=== PATIENT | male | born 1940 | race Caucasian/White ===

== ENCOUNTER 2024-04-23 18:55 | Inpatient (IN) | payer MEDICARE, SELFPAY ==
--- NOTE | ~2024-04-23 | XR_ITS ---
EXAMINATION: XR CHEST CLINICAL INFORMATION: Covert positive COMPARISON: 04/23/2024 TECHNIQUE: Portable upright 2:32 PM view of the chest was obtained. FINDINGS: On for technical limitations of a portable exam, no gross change. Blunting of bicuspid thickening is similar. Subtle increased markings in the right lung may be related to atypical infection. XR/XR chest 1V IMPRESSION: Limited portable exam. Subtle increased markings in the right lung may be related to atypical infection. Electronically signed by: Gustabo Joseph MD 04/27/2024 05:43 PM EDT
--- NOTE | ~2024-04-23 | CT_ITS ---
EXAMINATION: CT HEAD WITHOUT CONTRAST CT CERVICAL SPINE WITHOUT CONTRAST CLINICAL INFORMATION: Multiple falls. Patient on blood thinners. COMPARISON: None available. TECHNIQUE: Contiguous axial imaging was performed from the skull base to vertex without intravenous administration of contrast. Contiguous axial imaging was performed from the upper chest through the skull base without intravenous administration of contrast. Coronal and sagittal reformats were obtained at the acquisition workstation. This CT examination was performed using dose optimization techniques as appropriate, variously including the following: *Automated exposure control. *Adjustment of mA and/or kV according to patient size (this includes techniques or standardized protocols for targeted exams where dose is matched to indication/reason for exam; i.e. extremities or head). *Use of iterative reconstruction technique. DLP: 1327 mGy-cm FINDINGS: Head: There is no evidence of acute intracranial hemorrhage or edematous territorial infarction. Ybarra-white matter differentiation is preserved. Scattered and partially confluent hypoattenuation in the periventricular and deep white matter are consistent with moderate microangiopathy. Proportional prominence of the ventricles and sulcal spaces without evidence of obstructive hydrocephalus. No abnormal mass effect or midline shift. No extra-axial fluid collections. Calcific atherosclerotic disease of the intracranial internal carotid and vertebral arteries. No hyperdense vessel sign. No acute soft tissue or osseous abnormalities. There is a 3.3 cm soft tissue lesion in the superficial lobe of the right parotid gland. Mild mucosal thickening of the paranasal sinuses. The mastoid air cells and middle ear cavities are clear. Bilateral lens extractions. Cervical Spine: The atlantooccipital and atlantoaxial articulations remain well aligned. Moderate degenerative arthropathy at the atlantodental articulation. Straightening of the normal cervical lordosis. Otherwise, there is anatomic alignment of the vertebral bodies and posterior elements. No evidence of acute fracture or subluxation. The vertebral body heights are maintained. Advanced degenerative disc disease at C3-C4 and from C5-T1. Facet and uncovertebral joint arthropathy leads to osseous encroachment on the neural foramina from C3-C7. There is no prevertebral soft tissue swelling. There is a 0.8 cm coarse calcification in the right thyroid lobe (no follow-up imaging recommended based on current guidelines at the time of examination). The remaining cervical soft tissues are within normal limits. The lung apices demonstrate no abnormalities. CT/CT cervical spine wo IV con IMPRESSION: 1. No evidence of acute intracranial hemorrhage or edematous territorial infarction. Moderate underlying microangiopathy and generalized cerebral volume loss. 2. No evidence of acute fracture or traumatic subluxation of the cervical spine. Moderate multilevel degenerative spondyloarthropathy of the cervical spine. 3. There is a 3.3 cm soft tissue lesion in the superficial lobe of the right parotid gland. If not previously evaluated, this could be further characterized with dedicated ultrasound and/or tissue sampling. Electronically signed by: Leodan Lou DO 04/23/2024 10:26 PM EDT
--- NOTE | ~2024-04-23 | XR_ITS ---
EXAMINATION: XR CHEST CLINICAL INFORMATION: COVID positive, low suspicion CHF COMPARISON: None available. TECHNIQUE: Frontal view of the chest was obtained. FINDINGS: Low lung volumes accentuate the pulmonary vasculature. No focal airspace consolidation. Trace right pleural effusion at the costophrenic angle. No pneumothorax. Cardiac silhouette within normal limits. Bilateral shoulder osteoarthritis. XR/XR chest 1V IMPRESSION: No acute cardiopulmonary process. Trace right effusion. Electronically signed by: Waqas Jimenez DO 04/23/2024 10:54 PM EDT
--- NOTE | ~2024-04-23 | XR_ITS ---
EXAMINATION: XR HIP, RIGHT CLINICAL INFORMATION: Fall, pain COMPARISON: None available. TECHNIQUE: Two views of the right hip. FINDINGS: No fracture. Alignment is anatomic. Hip joint space is maintained. Osteoarthritis present. Soft tissues are unremarkable. XR/XR hip RT w PEL1V IMPRESSION: No acute fracture or dislocation the right hip. Electronically signed by: Waqas Jimenez DO 04/23/2024 11:02 PM EDT
[2024-04-23 19:03] VITALS: BP 172/96; PULSE 106; O2SAT 98
[2024-04-23 19:12] VITALS: BP 181/95; PULSE 100; RESP 16; TEMP 36.4; O2SAT 97; BMI 33.8
--- NOTE | 2024-04-23 19:47 | ECG_ITS ---
Test Reason : FALL Blood Pressure : / mmHG Vent. Rate : 102 BPM Atrial Rate : 000 BPM P-R Int : 000 ms QRS Dur : 134 ms QT Int : 396 ms P-R-T Axes : 000 -61 005 degrees QTc Int : 516 ms Atrial fibrillation with rapid ventricular response Right bundle branch block Left anterior fascicular block Bifascicular block Septal infarct , age undetermined Abnormal ECG When compared with ECG of 18-APR-2009 07:07, Atrial fibrillation has replaced Sinus rhythm Vent. rate has increased BY 44 BPM (RBBB and left anterior fascicular block) is now Present Septal infarct is now Present Referred By: Phyllis Holguin Electronically Signed By:SHAI FLORES
[2024-04-23 20:12] LABS: MANUAL DIFF FLAG NO
[2024-04-23 20:21] LABS: Basophils Percent Auto 0.4 % (0-2); Eosinophils Absolute Auto 0.2 X10*3/uL (0.0-0.4); Eosinophils Percent Auto 2.2 % (0-4); Hematocrit 29.8 % (42.0-52.0); Hemoglobin 9.3 g/dl (14.0-18.0); Imm Gran Abs Auto 0.05 X10*3/uL (0.00-0.03); Imm Gran Pct Auto 0.6 % (0.0-0.4); Lymphocytes Absolute Auto 1.3 X10*3/uL (1.2-4.9); Lymphocytes Percent Auto 16.2 % (20-40); Mean Corpuscular HGB Conc 31.2 g/dl (31.0-36.0); Mean Corpuscular Hemoglobin 28.4 pg (27.0-33.0); Mean Corpuscular Volume 90.9 fL (80.0-98.0); Mean Platelet Volume 11.4 fL (9.4-12.4); Monocytes Absolute Auto 0.7 X10*3/uL (0.1-1.2); Monocytes Percent Auto 8.7 % (2-11); Neutrophils Absolute Auto 5.6 x10*3/uL (2.0-8.3); Neutrophils Percent Auto 71.9 % (45-73); Platelet Count 174 X10*3/uL (160-400); Red Blood Count 3.28 X10*6/uL (4.60-5.80); White Blood Count 7.8 X10*3/uL (4.8-10.8)
[2024-04-23 20:27] VITALS: BP 151/64; PULSE 96; RESP 20; TEMP 36.9; O2SAT 97
[2024-04-23 20:28] LABS: COVID-19 Test Positive (Negative); IDNOW Serial# 6674DD1D
--- NOTE | 2024-04-23 20:28 | MHC.EDTECH ---
Patient was biba from home ,vitals taken ,blood drawn and covid swab collected all sent to lab ,ekg taken and was read by Provider ,Patient was change into hospital gown ,all extra blankets removed from underneath Patient ,All safety measure in Place .
[2024-04-23 20:33] LABS: B Type Natriuretic Peptide 293 pg/mL (<100)
[2024-04-23 20:35] LABS: INTERNATIONAL NORM RATIO 1.2 (0.9-1.1); Prothrombin Time 14.2 SEC (11.1-13.3)
[2024-04-23 20:38] LABS: Alanine Aminotransferase 9 U/L (0-40); Albumin Level 3.5 g/dL (3.5-5.0); Alkaline Phosphatase 71 U/L (39-117); Anion Gap 14 (12-20); Aspartate Amino Transferase 11 U/L (5-37); Bilirubin Direct 0.3 mg/dL (0.0-0.5); Bilirubin Total 0.7 mg/dL (0.0-1.0); Blood Urea Nitrogen 15 mg/dL (9-16); Calcium 9.1 mg/dL (8.4-10.2); Carbon Dioxide 23 mmol/L (22-29); Chloride 110 mmol/L (96-108); Creatinine Clr Calc Pharmacy 70.3; Estimated Glomerular Filt Rate > 60; Ethanol < 10 mg/dL; Glucose Random 110 mg/dL (60-115); Magnesium 1.6 mg/dL (1.6-2.6); Potassium 3.6 mmol/L (3.3-5.1); Sodium 143 mmol/L (135-145); Total Protein 6.7 g/dL (6.5-8.0); Troponin-I High Sensitivity 45.3 ng/L (<3.5-35.0)
[2024-04-23 20:50] LABS: TSH reflex Free T4 1.26 uIU/mL (0.32-4.0)
--- NOTE | 2024-04-23 21:03 | ED.FALL ---
HPI - Fall General Chief Complaint: Fall Stated Complaint: Fall, increased weakness, hx neuropathy, leg edema Time Seen by Provider: 04/23/24 19:07 Source: patient Mode of arrival: ambulatory Limitations: no limitations History of Present Illness ED Provider: Dr. Phyllis Holguin HPI Narrative: Patient comes to the emergency room complaining of 2 falls. Patient states that earlier today, he fell transferring from chair to chair, slipped out and ended up on the floor. Patient states that this happened twice a day. 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 Patient states that he is on Eliquis, states that he did not hit his head or lost consciousness. Patient complaining of mild right hip pain. Related Data Allergies Allergy/AdvReac Type Severity Reaction Status Date / Time Penicillins Allergy Hives Verified 04/23/24 19:14 Review of Systems Review of Systems: Constitutional : No Weight loss, No Fever, No Chills, No Night Sweats, complaining of feeling fatigued and weak ENT/Mouth : No Hearing loss, No Ear Pain, No Nasal Congestion, No Sinus Pain, No Hoarseness, No sore throat, No Rhinorrhea, No Swallowing Difficulty Eyes: No Eye Pain, No Swelling, No Redness, No Foreign Body, No Discharge, No Vision Changes Cardiovascular : No Chest Pain, No SOB, No Dyspnea on Exertion, No Orthopnea, No Edema, No Palpitations Respiratory : No Cough, No Sputum, No Wheezing, No Smoke Exposure, No Dyspnea Gastrointestinal : No Nausea, No Vomiting, No Diarrhea, No Constipation, No abdominal Pain, No Hematochezia, No Melena Genitourinary : no irregular bleeding, No Dysuria, No Urinary Frequency, No Hematuria, No Urinary Incontinence, No Urgency, No Flank Pain, No Urinary Flow Changes, No Hesitancy Musculoskeletal : Complaining of right hip pain, No Myalgias, No Joint Swelling Skin : No Skin Lesions, No rash Neuro : No Weakness, No Numbness, No Paresthesias, No Loss of Consciousness, No Dizziness, No Headache Psych : No Anxiety/Panic, No Depression, No SI/HI/AH/VH, No Social Issues, Heme/Lymph: No Bruising, No Bleeding,No Lymphadenopathy Endocrine : No Polyuria, No Polydipsia, No Temperature Intolerance [facility] Past Medical History Medical History (Updated 04/23/24 @ 23:08 by Phyllis Holguin MD) Hypertension Hyperlipidemia Obstructive sleep apnea Spinal stenosis Anemia Chronic GERD Chronic kidney disease, stage 3 CHF (congestive heart failure) 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 Oriented X3. No acute distress. Eyes: Pupils equal, round and reactive to light. ENT: Pharynx normal. Neck: Normal inspection. Neck supple. No lymph nodes noted. No crepitus CVS: Normal heart rate and rhythm. Pulses normal. Normal S1 and S2 Respiratory: No respiratory distress. Breath sounds normal. No Wheezing. No rales Abdomen: Soft and nontender. No rigidity. No distention. Skin: Skin warm and dry. Normal skin color. Normal skin turgor. Extremities: +3 pitting edema bilaterally, No Lacerations. No Rash Neuro: Oriented X 3. No motor deficit. No sensory deficit. Moving all extremities. No slurred speech. CN 2 through 12 grossly intact Psych: calm, cooperative, normal affect Course Course Course Narrative: My interpretation of labs: No significant abnormality in hematology and chemistry, normal LFTs, TSH, troponin slightly elevated 45, BNP 293. Serology test positive for COVID -urinalysis pending Medications Administered Discontinued Medications Generic Name Dose Route Start Last Admin Trade Name Freq PRN Reason Stop Dose Admin Ceftriaxone Sodium 1 gm/ 50 mls @ 100 mls/hr 04/23/24 21:57 04/23/24 22:15 Sodium Chloride IV 04/23/24 22:26 100 mls/hr ONCE ONE Administration Medical Decision Making Medical Decision Making [facility] Narrative: My interpretation of labs: Patient's hemoglobin 9.3, no previous labs for comparison. Normal electrolytes. Troponin slightly elevated 45.3, BNP 293. Serology positive for COVID, urine positive for UTI -patient's vitals are stable, no episodes of hypotension, no fever or tachycardia -patient receiving ceftriaxone IV -sepsis is not suspected -my interpretation of chest x-ray: No signs of pneumonia. -my interpretation of hip x-ray: No fracture -patient does not additional oxygen, no need for IV antibiotics. Discussed the patient with Dr. Landaverde, patient does not have criteria for admission. Patient will need physical therapy and case management. -physician observation started at 23:00 Differential Diagnosis Differential Diagnoses: The differential diagnosis associated with the presentation includes (UTI, pneumonia, COVID, deconditioning) Admission/Observation Consideration of admission/observation: Escalation of care including admission/observation considered Consult Healthcare Provider Management of the patient was discussed with: Hospitalist Lab Data MDM Lab Attestation statement: I reviewed the patient's lab results. 04/23/24 20:07 04/23/24 20:07 Labs: Lab Results 04/23/24 04/23/24 04/23/24 Range/Units 20:07 20:09 21:02 WBC 7.8 (4.8-10.8) X10*3/uL RBC 3.28 L (4.60-5.80) X10*6/uL Hgb 9.3 L (14.0-18.0) g/dl Hct 29.8 L (42.0-52.0) % MCV 90.9 (80.0-98.0) fL MCH 28.4 (27.0-33.0) pg MCHC 31.2 (31.0-36.0) g/dl RDW 16.0 (11.0-16.0) % Plt Count 174 (160-400) X10*3/uL MPV 11.4 (9.4-12.4) fL Immature Gran % (Auto) 0.6 H (0.0-0.4) % Neut % (Auto) 71.9 (45-73) % Lymph % (Auto) 16.2 L (20-40) % Harding % (Auto) 8.7 (2-11) % Eos % (Auto) 2.2 (0-4) % Baso % (Auto) 0.4 (0-2) % Lymph # (Auto) 1.3 (1.2-4.9) X10*3/uL Harding # (Auto) 0.7 (0.1-1.2) X10*3/uL Eos # (Auto) 0.2 (0.0-0.4) X10*3/uL Baso # (Auto) 0.0 (0.0-0.2) X10*3/uL Abs Immat Gran (auto) 0.05 H (0.00-0.03) X10*3/uL Absolute Neuts (auto) 5.6 (2.0-8.3) x10*3/uL Absolute Nucleated RBC 0.000 (0.0-0.012) X10*3/uL Nucleated RBC % (auto) 0.0 (0.0-0.2) /100WBC PT 14.2 H (11.1-13.3) SEC INR 1.2 H (0.9-1.1) Sodium 143 (135-145) mmol/L Potassium 3.6 (3.3-5.1) mmol/L Chloride 110 H (96-108) mmol/L Carbon Dioxide 23 (22-29) mmol/L Anion Gap 14 (12-20) BUN 15 (9-16) mg/dL Creatinine 1.07 (0.5-1.4) mg/dL Estim Creat Clear Calc 70.3 Estimated GFR > 60 Random Glucose 110 (60-115) mg/dL Calcium 9.1 (8.4-10.2) mg/dL Magnesium 1.6 (1.6-2.6) mg/dL Total Bilirubin 0.7 (0.0-1.0) mg/dL Direct Bilirubin 0.3 (0.0-0.5) mg/dL AST 11 (5-37) U/L ALT 9 (0-40) U/L Alkaline Phosphatase 71 (39-117) U/L Troponin I High Sens 45.3 H (<3.5-35.0) ng/L B-Natriuretic Peptide 293 H (<100) pg/mL Total Protein 6.7 (6.5-8.0) g/dL Albumin 3.5 (3.5-5.0) g/dL TSH 1.26 (0.32-4.0) uIU/mL Urine Color Yellow Urine Appearance Turbid Urine pH 5.5 (5.0-9.0) Ur Specific [place] 1.020 (1.005-1.025) Urine Protein 100 (2+) H (Neg-Trace) mg/dL Urine Glucose (UA) Negative (Negative) mg/dL Urine Ketones Negative (Negative) mg/dL Urine Blood Small (1+) H (Negative) Urine Nitrite Negative (Negative) Ur Leukocyte Esterase Large (3+) H (Negative) Urine RBC 0-2 (0-2) /HPF Urine WBC >50 H (0-5) /HPF Ur Squamous Epith Cells 0-2 (0-2) /HPF Urine Bacteria None Seen (None Seen) Hyaline Casts 0-2 (0-2) /LPF Urine Opiates Screen Not Detected (Not Detect) Ur Buprenorphine Scrn Not Detected (Not Detect) ng/mL Ur Oxycodone Screen Not Detected (Not Detect) ng/mL Urine Methadone Screen Not Detected (Not Detect) ng/mL Urine Fentanyl Screen Not Detected (Not Detect) Ur Barbiturates Screen Not Detected (Not Detect) Ur Phencyclidine Scrn Not Detected (Not Detect) Ur Amphetamines Screen Not Detected (Not Detect) U Benzodiazepines Scrn Not Detected (Not Detect) Urine Cocaine Screen Not Detected (Not Detect) U Marijuana (THC) Screen Not Detected (Not Detect) Ethyl Alcohol < 10 mg/dL COVID-19 ([facility]) Positive A (Negative) COVID-19 Clin Com See Note 04/23/24 Range/Units 22:17 WBC (4.8-10.8) X10*3/uL RBC (4.60-5.80) X10*6/uL Hgb (14.0-18.0) g/dl Hct (42.0-52.0) % MCV (80.0-98.0) fL MCH (27.0-33.0) pg MCHC (31.0-36.0) g/dl RDW (11.0-16.0) % Plt Count (160-400) X10*3/uL MPV (9.4-12.4) fL Immature Gran % (Auto) (0.0-0.4) % Neut % (Auto) (45-73) % Lymph % (Auto) (20-40) % Harding % (Auto) (2-11) % Eos % (Auto) (0-4) % Baso % (Auto) (0-2) % Lymph # (Auto) (1.2-4.9) X10*3/uL Harding # (Auto) (0.1-1.2) X10*3/uL Eos # (Auto) (0.0-0.4) X10*3/uL Baso # (Auto) (0.0-0.2) X10*3/uL Abs Immat Gran (auto) (0.00-0.03) X10*3/uL Absolute Neuts (auto) (2.0-8.3) x10*3/uL Absolute Nucleated RBC (0.0-0.012) X10*3/uL Nucleated RBC % (auto) (0.0-0.2) /100WBC PT (11.1-13.3) SEC INR (0.9-1.1) Sodium (135-145) mmol/L Potassium (3.3-5.1) mmol/L Chloride (96-108) mmol/L Carbon Dioxide (22-29) mmol/L Anion Gap (12-20) BUN (9-16) mg/dL Creatinine (0.5-1.4) mg/dL Estim Creat Clear Calc Estimated GFR Random Glucose (60-115) mg/dL Calcium (8.4-10.2) mg/dL Magnesium (1.6-2.6) mg/dL Total Bilirubin (0.0-1.0) mg/dL Direct Bilirubin (0.0-0.5) mg/dL AST (5-37) U/L ALT (0-40) U/L Alkaline Phosphatase (39-117) U/L Troponin I High Sens 48.5 H (<3.5-35.0) ng/L B-Natriuretic Peptide (<100) pg/mL Total Protein (6.5-8.0) g/dL Albumin (3.5-5.0) g/dL TSH (0.32-4.0) uIU/mL Urine Color Urine Appearance Urine pH (5.0-9.0) Ur Specific [place] (1.005-1.025) Urine Protein (Neg-Trace) mg/dL Urine Glucose (UA) (Negative) mg/dL Urine Ketones (Negative) mg/dL Urine Blood (Negative) Urine Nitrite (Negative) Ur Leukocyte Esterase (Negative) Urine RBC (0-2) /HPF Urine WBC (0-5) /HPF Ur Squamous Epith Cells (0-2) /HPF Urine Bacteria (None Seen) Hyaline Casts (0-2) /LPF Urine Opiates Screen (Not Detect) Ur Buprenorphine Scrn (Not Detect) ng/mL Ur Oxycodone Screen (Not Detect) ng/mL Urine Methadone Screen (Not Detect) ng/mL Urine Fentanyl Screen (Not Detect) Ur Barbiturates Screen (Not Detect) Ur Phencyclidine Scrn (Not Detect) Ur Amphetamines Screen (Not Detect) U Benzodiazepines Scrn (Not Detect) Urine Cocaine Screen (Not Detect) U Marijuana (THC) Screen (Not Detect) Ethyl Alcohol mg/dL COVID-19 ([facility]) (Negative) COVID-19 Clin Com Independent Interpretation I performed an independent interpretation of an: Plain X-Ray and CT Scan Radiology Impression Discussion of test interpretation with radiology: I have reviewed the radiologist's reading. Radiologist Impression: Head: There is no evidence of acute intracranial hemorrhage or edematous territorial infarction. Ybarra-white matter differentiation is preserved. Scattered and partially confluent hypoattenuation in the periventricular and deep white matter are consistent with moderate microangiopathy. Proportional prominence of the ventricles and sulcal spaces without evidence of obstructive hydrocephalus. No abnormal mass effect or midline shift. No extra-axial fluid collections. Calcific atherosclerotic disease of the intracranial internal carotid and vertebral arteries. No hyperdense vessel sign. No acute soft tissue or osseous abnormalities. There is a 3.3 cm soft tissue lesion in the superficial lobe of the right parotid gland. Mild mucosal thickening of the paranasal sinuses. The mastoid air cells and middle ear cavities are clear. Bilateral lens extractions. Cervical Spine: The atlantooccipital and atlantoaxial articulations remain well aligned. Moderate degenerative arthropathy at the atlantodental articulation. Straightening of the normal cervical lordosis. Otherwise, there is anatomic alignment of the vertebral bodies and posterior elements. No evidence of acute fracture or subluxation. The vertebral body heights are maintained. Advanced degenerative disc disease at C3-C4 and from C5-T1. Facet and uncovertebral joint arthropathy leads to osseous encroachment on the neural foramina from C3-C7. There is no prevertebral soft tissue swelling. There is a 0.8 cm coarse calcification in the right thyroid lobe (no follow-up imaging recommended based on current guidelines at the time of examination). The remaining cervical soft tissues are within normal limits. The lung apices demonstrate no abnormalities. CT/CT head/brain wo IV con IMPRESSION: 1. No evidence of acute intracranial hemorrhage or edematous territorial infarction. Moderate underlying microangiopathy and generalized cerebral volume loss. 2. No evidence of acute fracture or traumatic subluxation of the cervical spine. Moderate multilevel degenerative spondyloarthropathy of the cervical spine. 3. There is a 3.3 cm soft tissue lesion in the superficial lobe of the right parotid gland. If not previously evaluated, this could be further characterized with dedicated ultrasound and/or tissue sampling. Low lung volumes accentuate the pulmonary vasculature. No focal airspace consolidation. Trace right pleural effusion at the costophrenic angle. No pneumothorax. Cardiac silhouette within normal limits. Bilateral shoulder osteoarthritis. XR/XR chest 1V IMPRESSION: No acute cardiopulmonary process. Trace right effusion. No fracture. Alignment is anatomic. Hip joint space is maintained. Osteoarthritis present. Soft tissues are unremarkable. XR/XR hip RT w PEL1V IMPRESSION: No acute fracture or dislocation the right hip. Critical Care Time Critical Care Time Critical Care Time: Yes Total Critical Care Time: 60 Attestation: I have personally provided critical care time. Time includes review of lab data, radiology results, discussion with consultants, and monitoring for potential decompensation. Intervention performed as documented. Discharge Plan Discharge Clinical Impression: COVID-19, Weakness, Acute UTI Patient Disposition: Still a Patient Print Language: Bahamian
--- NOTE | 2024-04-23 21:07 | PC.NURSE ---
Per patient he's currently living in a hotel because his landlord threw him out to redo the place
[2024-04-23 21:09] LABS: Appearance Urine Turbid; Color Urine Yellow; Glucose Urine UA Negative (Negative); Leukocyte Esterase Urine Large (3+) (Negative); Nitrite Urine Negative (Negative); PH 5.5 (5.0-9.0); UMIC TRIGGER UACC YES; Urine Blood Small (1+) (Negative); Urine Ketones Negative (Negative); Urine Protein 100 (2+) mg/dL (Neg-Trace)
[2024-04-23 21:26] LABS: Bacteria Urine None Seen (None Seen); Hyaline Casts Urine 0-2 /LPF (0-2); RBC Urine 0-2 /HPF (0-2); Squamous Epithelial Cell Urine 0-2 /HPF (0-2); UACC Culture Trigger YES; WBC Urine >50 /HPF (0-5)
[2024-04-23 21:28] LABS: Amphetamine Screen Urine Not Detected (Not Detect); Barbiturates, Urine Not Detected (Not Detect); Benzodiazepines Screen Urine Not Detected (Not Detect); Buprenorphine Scr Not Detected (Not Detect); Cannabinoid Screen Urine Not Detected (Not Detect); Cocaine Screen Urine Not Detected (Not Detect); Fentanyl, urine Not Detected (Not Detect); Methadone Screen, Urine Not Detected (Not Detect); Opiate Screen Urine Not Detected (Not Detect); Oxycodone Screen Urine Not Detected (Not Detect); Phencyclidine Screen Urine Not Detected (Not Detect)
[2024-04-23 22:00] VITALS: BP 181/88; PULSE 98; RESP 12; TEMP 36.6; O2SAT 97
[2024-04-23] MEDS: cefTRIAXone sodium 1 GM in 0.9 % Sodium Chloride 50 ML IV (22:15)
[2024-04-23 22:44] LABS: Troponin-I High Sensitivity 48.5 ng/L (<3.5-35.0)
[2024-04-24] VITALS (13 sets, daily range): BP systolic 145–186; BP diastolic 72–117; PULSE 81–140; RESP 12–22; TEMP 36.7–37.3; O2SAT 76–100
--- NOTE | 2024-04-24 00:16 | PC.NURSE ---
this rn assumed care of pt, pt a&ox4, respirations even and unlabored. pt assisted in bed change, pt 2A for assistance with rolling. pt noted to have redness and edema to the bilateral lower extremities.
--- NOTE | 2024-04-24 01:49 | MHC.EDTECH ---
Patient awake in bed ,Patient belongings list done ,all safety measure in Place .
--- NOTE | 2024-04-24 04:30 | MHC.EDTECH ---
0400 rounding done ,Patient was incontinent of urine ,care given and gown change ,Patient was moved into a hospital bed ,apple juice given ,bed alarm non bed .
--- NOTE | 2024-04-24 04:32 | PC.NURSE ---
pt assisted onto hospital bed, tele leads placed on pt, pt noted to be in afib rhythm 125-140bpm. dr.anwer crisostomo.
[2024-04-24] MEDS: dilTIAZem HCL 50 MG/10 ML VIAL 20 MG IVPUSH (04:45)
--- NOTE | 2024-04-24 04:52 | PC.NURSE ---
pt medicated per mar, pt heart rate 80-84bpm, at bedside. pt reports he is unsure if he takes medications for afib.
[2024-04-24] MEDS: Apixaban 5 MG TABLET PO ×2 (05:02→21:21)
--- NOTE | 2024-04-24 05:13 | P.HPHOSP_ITS ---
History of Present Illness Date of Service: 04/24/24 Chief Complaint: Fall This is a 83-year-old male with pertinent history of paroxysmal atrial fibrillation not on anticoagulation, gastroesophageal reflux disease, mixed hyperlipidemia, non-insulin dependent diabetes mellitus, peripheral neuropathy, hypertension, history of spinal stenosis, GHISLAINE not on CPAP who presents to the emergency department for evaluation after a fall. Patient states while transferring from 1 chair to the other, he slipped and fell. Did not lose consciousness prior to the fall. No chest pain or palpitations prior to the fall. No rhythmic jerking movement of extremities. Patient states he has been having neuropathic pain and he needs help at home. His primary upper stitcher is is 85-year-old . States he does not know any of his medications in his keeps him all his prescription medications. Patient was previously on Eliquis for AFib but is not on it for unknown reasons. Complaining of right hip pain since the fall. No fever, chills, chest discomfort, palpitations, abdominal pain, changes in bowel habits. Does endorse foul-smelling urine and increased urinary frequency. In the emergency department, patient's heart rate was in the 140s and he was given IV diltiazem. Also tested positive for COVID-19 and urine concerning for UTI. 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 Atrial fibrillation Type 2 diabetes mellitus Neuropathy Pertinent family history: Not significant due to age Social History Smoked in Last 30 Days: Yes Use of substances other than those prescribed or required for medical reasons: No Advance Directives: No Advance Directives Information Provided: Yes Do you have a plan to hurt others: No Plan Meds Allergies Allergy/AdvReac Type Severity Reaction Status Date / Time Penicillins Allergy Hives Verified 04/23/24 19:14 Active Medications: Current Medications Cefuroxime Axetil (Cefuroxime Axetil 250 Mg Tablet) 250 mg PO ONCE ONE Stop: 04/24/24 09:01 Physical Exam 2 Vital Signs and Narrative: Vital Signs: Last Vital Signs Temp 98.2 F 04/24/24 04:35 Pulse 97 04/24/24 04:50 Resp 20 04/24/24 04:50 BP 179/86 H 04/24/24 04:50 Pulse Ox 93 04/24/24 04:50 O2 Del Method Room Air 04/24/24 04:50 BMI result Body Mass Index 33.8 Elderly male lying in bed in no distress Neck supple, no JVD Regular rate and rhythm, S1-S2 heard Regular breath sounds bilaterally, no wheezing or crackles appreciated Abdomen soft nontender, no guarding, no rigidity Patient is awake, alert and oriented to self, place, time and person ; no focal motor deficit Psych: Normal mood Bilateral pedal edema Results Labs 04/23/24 20:07 04/23/24 20:07 Labs: Laboratory Results - last 24 hr 04/23/24 04/23/24 04/23/24 20:07 20:09 21:02 MCV 90.9 MCH 28.4 MCHC 31.2 RDW 16.0 Plt Count 174 MPV 11.4 Immature Gran % (Auto) 0.6 H Neut % (Auto) 71.9 Lymph % (Auto) 16.2 L Whitley % (Auto) 8.7 Eos % (Auto) 2.2 Baso % (Auto) 0.4 Lymph # (Auto) 1.3 Whitley # (Auto) 0.7 Eos # (Auto) 0.2 Baso # (Auto) 0.0 Abs Immat Gran (auto) 0.05 H Absolute Neuts (auto) 5.6 Absolute Nucleated RBC 0.000 Nucleated RBC % (auto) 0.0 PT 14.2 H INR 1.2 H Anion Gap 14 Estim Creat Clear Calc 70.3 Estimated GFR > 60 Random Glucose 110 Calcium 9.1 Magnesium 1.6 Total Bilirubin 0.7 Direct Bilirubin 0.3 AST 11 ALT 9 Alkaline Phosphatase 71 Troponin I High Sens 45.3 H B-Natriuretic Peptide 293 H Total Protein 6.7 Albumin 3.5 TSH 1.26 Urine Color Yellow Urine Appearance Turbid Urine pH 5.5 Ur Specific [place] 1.020 Urine Protein 100 (2+) H Urine Glucose (UA) Negative Urine Ketones Negative Urine Blood Small (1+) H Urine Nitrite Negative Ur Leukocyte Esterase Large (3+) H Urine RBC 0-2 Urine WBC >50 H Ur Squamous Epith Cells 0-2 Urine Bacteria None Seen Hyaline Casts 0-2 Urine Opiates Screen Not Detected Ur Buprenorphine Scrn Not Detected Ur Oxycodone Screen Not Detected Urine Methadone Screen Not Detected Urine Fentanyl Screen Not Detected Ur Barbiturates Screen Not Detected Ur Phencyclidine Scrn Not Detected Ur Amphetamines Screen Not Detected U Benzodiazepines Scrn Not Detected Urine Cocaine Screen Not Detected U Marijuana (THC) Screen Not Detected Ethyl Alcohol < 10 COVID-19 ([facility]) Positive A COVID-19 Clin Com See Note 04/23/24 22:17 MCV MCH MCHC RDW Plt Count MPV Immature Gran % (Auto) Neut % (Auto) Lymph % (Auto) Whitley % (Auto) Eos % (Auto) Baso % (Auto) Lymph # (Auto) Whitley # (Auto) Eos # (Auto) Baso # (Auto) Abs Immat Gran (auto) Absolute Neuts (auto) Absolute Nucleated RBC Nucleated RBC % (auto) PT INR Anion Gap Estim Creat Clear Calc Estimated GFR Random Glucose Calcium Magnesium Total Bilirubin Direct Bilirubin AST ALT Alkaline Phosphatase Troponin I High Sens 48.5 H B-Natriuretic Peptide Total Protein Albumin TSH Urine Color Urine Appearance Urine pH Ur Specific [place] Urine Protein Urine Glucose (UA) Urine Ketones Urine Blood Urine Nitrite Ur Leukocyte Esterase Urine RBC Urine WBC Ur Squamous Epith Cells Urine Bacteria Hyaline Casts Urine Opiates Screen Ur Buprenorphine Scrn Ur Oxycodone Screen Urine Methadone Screen Urine Fentanyl Screen Ur Barbiturates Screen Ur Phencyclidine Scrn Ur Amphetamines Screen U Benzodiazepines Scrn Urine Cocaine Screen U Marijuana (THC) Screen Ethyl Alcohol COVID-19 ([facility]) COVID-19 Clin Com Imaging Radiologist's Impressions: Impressions Cervical Spine CT 04/23/24 20:57 IMPRESSION: 1. No evidence of acute intracranial hemorrhage or edematous territorial infarction. Moderate underlying microangiopathy and generalized cerebral volume loss. 2. No evidence of acute fracture or traumatic subluxation of the cervical spine. Moderate multilevel degenerative spondyloarthropathy of the cervical spine. 3. There is a 3.3 cm soft tissue lesion in the superficial lobe of the right parotid gland. If not previously evaluated, this could be further characterized with dedicated ultrasound and/or tissue sampling. Electronically signed by: Leodan Lou DO 04/23/2024 10:26 PM EDT RP Chest X-Ray 04/23/24 21:03 IMPRESSION: No acute cardiopulmonary process. Trace right effusion. Electronically signed by: Waqas Jimenez DO 04/23/2024 10:54 PM EDT RP Head CT 04/23/24 21:05 IMPRESSION: 1. No evidence of acute intracranial hemorrhage or edematous territorial infarction. Moderate underlying microangiopathy and generalized cerebral volume loss. 2. No evidence of acute fracture or traumatic subluxation of the cervical spine. Moderate multilevel degenerative spondyloarthropathy of the cervical spine. 3. There is a 3.3 cm soft tissue lesion in the superficial lobe of the right parotid gland. If not previously evaluated, this could be further characterized with dedicated ultrasound and/or tissue sampling. Electronically signed by: Leodan Lou DO 04/23/2024 10:26 PM EDT RP Hip/Pelvis X-Ray 04/23/24 21:07 IMPRESSION: No acute fracture or dislocation the right hip. Electronically signed by: Waqas Jimenez DO 04/23/2024 11:02 PM EDT RP Assessment and Plan (1) Atrial fibrillation with rapid ventricular response: Status: Acute Plan This is a 83-year-old male with pertinent history of paroxysmal atrial fibrillation not on anticoagulation, gastroesophageal reflux disease, mixed hyperlipidemia, non-insulin dependent diabetes mellitus, peripheral neuropathy, hypertension, history of spinal stenosis, GHISLAINE not on CPAP who presents to the emergency department for evaluation after a fall. #. Generalized weakness in the setting of COVID-19 infection on acute UTI: Will admit patient with IV Rocephin. Follow urine culture. No sepsis. Consulting Physical therapy to evaluate and treat #. AFib with RVR: Rate controlled with IV diltiazem push in the ER. Continue to monitor. On beta-johan. Chads Vasc score 3. Initiated Eliquis #. Normocytic anemia: Hemoglobin above transfusion threshold #. Mood disorder: Continue home mood stabilizers #. Hypertension: Continue home antihypertensives #. Gastroesophageal reflux disease: On PPI #. Mixed hyperlipidemia: On statin #. Dgg-czxyxgs-xdiceqhby diabetes mellitus with neuropathy: Initiating Accu- Cheks with sliding scale insulin. Also initiating gabapentin #. Bilateral lower extremity edema: Leg elevation and compression stockings. May need diuresis Med rec pending DVT prophylaxis: Eliquis Full code Quality Stroke Does the patient have a stroke diagnosis?: No VTE Prior VTE?: No VTE Risk Level:: Medical - moderate - high VTE Device Contraindication: Treatment Not Indicated VTE Drug Contraindication: N/A - Med Ordered
--- NOTE | 2024-04-24 05:25 | PC.NURSE ---
Radha pt - [phone] [facility] [address]
[2024-04-24] MEDS: Gabapentin 300 MG CAPSULE PO ×2 (05:44→21:21)
--- NOTE | 2024-04-24 06:42 | PC.NURSE ---
aware of pt blood pressure, orders as follows.
[2024-04-24] MEDS: Labetalol HCL 100 MG/20 ML VIAL 10 MG IVPUSH (07:00)
--- NOTE | 2024-04-24 07:28 | PC.NURSE ---
pt's oxygen saturation noted to decrease to 76% on RA w/ a good pleth while sleeping. pt woken up - O2 increased to 84% on RA. pt denies any difficulty breathing/sob. no no sob/wob noted. respirations even/unlabored. lung sounds CTA. pt placed on 2L via NC for supplemental oxygen. resting in hospital bed in no apparent distress. pt waiting for bed assignment. plan of care ongoing. call pretty placed within reach.
[2024-04-24] MEDS: 0.9 % Sodium Chloride Flush 3 ML SYRINGE IVFLUSH (07:31)
[2024-04-24] MEDS: cefTRIAXone sodium 1 GM in 0.9 % Sodium Chloride 50 ML IV (08:05)
[2024-04-24] MEDS: cefuroxime axetiL 250 MG TABLET PO (08:05)
--- NOTE | 2024-04-24 08:08 | PC.NURSE ---
abx administered per provider order.
--- NOTE | 2024-04-24 09:00 | PC.NURSE ---
pt remains slightly hypertensive. admitting provider notified/aware.
--- NOTE | 2024-04-24 09:40 | PHA.MEDREC ---
Pharmacy Consult ? Medication Reconciliation Pharmacy has completed the medication reconciliation. Received med list from RN, matches claim history for the most part. Added updated Torsemide directions, Diltiazem 240mg ER, Eliquis 5mg BID, and Glimepride 1mg daily.
--- NOTE | 2024-04-24 11:39 | PM.EVENT ---
Event Note Date of Service: 04/24/24 Event Note: Chart reviewed/patient examined. Agree with history and physical and plan as outlined by aries flokike. Time Spent With Patient Time: Total time managing care of this patient today ____ minutes.
--- NOTE | 2024-04-24 12:12 | PC.NURSE ---
pt resting comfortably w/ lights dimmed in no apparent distress. pt remains on 2L via NC - resting comfortably w/o difficulty. respirations remain even/unlabored. plan of care ongoing. call pretty placed within reach.
--- NOTE | 2024-04-24 15:22 | PC.NURSE ---
pt continues to wait for bed assignment at this time. has no complaints. remains on 2L via NC for supplemental O2. no sob/wob noted. respirations even/unlabored. plan of care ongoing.
--- NOTE | 2024-04-24 17:23 | PC.NURSE ---
pt noted to be tachycardic - HR between 120-125bpm. denies any chest pain/palpitations/sob. otherwise vss and up to date aside from remaining hypertensive. dr. vargas notified/aware. pt otherwise resting comfortably in no in no apparent distress w/ the lights dimmed. respirations remain even/unlabored. plan of care ongoing. call pretty placed within reach.
--- NOTE | 2024-04-24 18:06 | PC.NURSE ---
family members brought in medication from home. medication obtained by this RN. verification form filled out - noncontrolled medication brought to pharmacy.
[2024-04-24] MEDS: Lactated Ringers 500 ML 999 ML IV (18:46)
--- NOTE | 2024-04-24 20:15 | PC.NURSE ---
diltiazem held per MD, HR <100 at this time
--- NOTE | 2024-04-24 23:35 | PC.NURSE ---
report received from Saadia CROCKER, assume care of pt at this time
--- NOTE | 2024-04-24 23:46 | MHC.EDTECH ---
Assisted pt with BM, changed linen and pads
[2024-04-25] VITALS (8 sets, daily range): BP systolic 135–170; BP diastolic 60–97; PULSE 86–121; RESP 18–21; TEMP 36.1–36.6; O2SAT 91–100; BMI 33.1
[2024-04-25] MEDS: 0.9 % Sodium Chloride Flush 3 ML SYRINGE IVFLUSH ×4 (00:36→22:35)
--- NOTE | 2024-04-25 01:49 | MHC.EDTECH ---
This tech took over care of patient at 0130AM,rounds completed,call pretty in reach
--- NOTE | 2024-04-25 03:58 | MHC.EDTECH ---
Hourly rounds and vitals completed,patient urinated 200MLS of yellow urine in urinal,patient is resting quietly call pretty in reach
[2024-04-25 05:00] LABS: MANUAL DIFF FLAG NO
[2024-04-25 05:09] LABS: Basophils Percent Auto 0.4 % (0-2); Eosinophils Absolute Auto 0.1 X10*3/uL (0.0-0.4); Eosinophils Percent Auto 1.6 % (0-4); Hematocrit 32.2 % (42.0-52.0); Hemoglobin 9.6 g/dl (14.0-18.0); Imm Gran Abs Auto 0.05 X10*3/uL (0.00-0.03); Imm Gran Pct Auto 0.6 % (0.0-0.4); Lymphocytes Absolute Auto 1.3 X10*3/uL (1.2-4.9); Lymphocytes Percent Auto 15.1 % (20-40); Mean Corpuscular HGB Conc 29.8 g/dl (31.0-36.0); Mean Corpuscular Hemoglobin 28.4 pg (27.0-33.0); Mean Corpuscular Volume 95.3 fL (80.0-98.0); Mean Platelet Volume 11.4 fL (9.4-12.4); Monocytes Absolute Auto 0.9 X10*3/uL (0.1-1.2); Monocytes Percent Auto 10.7 % (2-11); Neutrophils Absolute Auto 6.1 x10*3/uL (2.0-8.3); Neutrophils Percent Auto 71.6 % (45-73); Platelet Count 145 X10*3/uL (160-400); Red Blood Count 3.38 X10*6/uL (4.60-5.80); Red Cell Distribution Width 16.3 % (11.0-16.0); White Blood Count 8.6 X10*3/uL (4.8-10.8)
[2024-04-25 05:15] LABS: Anion Gap 13 (12-20); Blood Urea Nitrogen 16 mg/dL (9-16); Calcium 8.7 mg/dL (8.4-10.2); Carbon Dioxide 25 mmol/L (22-29); Chloride 109 mmol/L (96-108); Creatinine Clr Calc Pharmacy 62.1; Estimated Glomerular Filt Rate 58; Glucose Random 103 mg/dL (60-115); Potassium 3.9 mmol/L (3.3-5.1); Sodium 143 mmol/L (135-145)
--- NOTE | 2024-04-25 06:09 | PC.NURSE ---
resting quietly, heart rate continue to flucates between 90's to low 100's, resp with ease, no s/s of acute distress, waiting on a bed upstairs
--- NOTE | 2024-04-25 06:48 | MHC.EDTECH ---
Hourly rounds and vitals completed,patient resting at this time,call pretty in reach
--- NOTE | 2024-04-25 06:53 | PC.NURSE ---
Report given to Loli Jerome RN
[2024-04-25] MEDS: cefTRIAXone sodium 1 GM in 0.9 % Sodium Chloride 50 ML IV (08:59)
[2024-04-25] MEDS: Apixaban 5 MG TABLET PO ×2 (09:00→22:35)
[2024-04-25] MEDS: Acetaminophen 325 MG TABLET 650 MG PO (09:15)
[2024-04-25] MEDS: Metoprolol Tartrate 25 MG TABLET PO (12:26)
--- NOTE | 2024-04-25 13:01 | HO.PM.IMPN ---
Subjective Subjective Date of Service: 04/25/24 Interval History: No acute issues overnight. Heart rate remains labile Review of Systems Denies chest pain Denies shortness of breath Denies nausea vomiting diarrhea Admits to back pain Physical Exam Vital Signs: Vital Signs: Last Vital Signs Temp 97.0 F 04/25/24 11:11 Pulse 121 H 04/25/24 11:11 Resp 20 04/25/24 11:11 BP 160/82 H 04/25/24 11:11 Pulse Ox 100 04/25/24 11:11 O2 Del Method Nasal Cannula 04/25/24 11:11 O2 Flow Rate 3 04/25/24 11:11 BMI result Body Mass Index 33.1 Resp: Other: Scant expiratory wheezes throughout Cardio: Other: Irregularly irregular. Positive S1/S2 Extrem: Other: No edema bilaterally Objective Data Active Medications Acetaminophen (Acetaminophen 325 Mg Tablet) 650 mg PO Q6H PRN PRN Reason: Pain, Mild (Pain Scale 1-3), fever or headache Last Admin: 04/25/24 09:15 Dose: 650 mg Documented By: MEL Apixaban (Apixaban 5 Mg Tablet) 5 mg PO BID [facility] Last Admin: 04/25/24 09:00 Dose: 5 mg Documented By: MEL Calcium Carbonate (Calcium Carbonate 750 Mg Tab.Chew) 750 mg PO Q4H PRN PRN Reason: Heartburn Gabapentin (Gabapentin 300 Mg Capsule) 300 mg PO BEDTIME [facility] Last Admin: 04/24/24 21:21 Dose: 300 mg Documented By: DARIO Ceftriaxone Sodium 1 gm/ (Sodium Chloride) 50 mls @ 100 mls/hr IV Q24H [facility] Last Infusion: 04/25/24 09:43 Dose: Infused Documented By: MEL Magnesium Hydroxide (Milk Of Magnesia 30 Ml Oral.Susp) 30 ml PO DAILY PRN PRN Reason: Constipation Melatonin (Melatonin 3 Mg Tablet) 6 mg PO BEDTIME PRN PRN Reason: Insomnia Metoprolol Tartrate (Metoprolol Tartrate 25 Mg Tablet) 25 mg PO QID [facility]; Protocol Last Admin: 04/25/24 12:26 Dose: 25 mg Documented By: MEL Ondansetron HCl (Ondansetron Hcl 4 Mg/2 Ml Vial) 4 mg IVPUSH Q8H PRN PRN Reason: Nausea and Vomiting Sodium Chloride (0.9 % Sodium Chloride Flush 3 Ml Syringe) 3 ml IVFLUSH QSHIFT [facility] Last Admin: 04/25/24 08:59 Dose: 3 ml Documented By: MEL Tramadol HCl (Tramadol Hcl 50 Mg Tablet) 25 mg PO Q6H PRN PRN Reason: Pain, Moderate(Pain Scale 4-6) Labs 04/25/24 04:21 04/25/24 04:21 Labs: Laboratory Results - last 24 hr 04/25/24 04:21 MCV 95.3 MCH 28.4 MCHC 29.8 L RDW 16.3 H Plt Count 145 L MPV 11.4 Immature Gran % (Auto) 0.6 H Neut % (Auto) 71.6 Lymph % (Auto) 15.1 L Sanders % (Auto) 10.7 Eos % (Auto) 1.6 Baso % (Auto) 0.4 Lymph # (Auto) 1.3 Sanders # (Auto) 0.9 Eos # (Auto) 0.1 Baso # (Auto) 0.0 Abs Immat Gran (auto) 0.05 H Absolute Neuts (auto) 6.1 Absolute Nucleated RBC 0.000 Nucleated RBC % (auto) 0.0 Anion Gap 13 Estim Creat Clear Calc 62.1 Estimated GFR 58 Random Glucose 103 Calcium 8.7 Microbiology Microbiology Results: Microbiology 04/23/24 21:30 Urine Culture - Final Urine clean catch - Clean Catch Midstream Strep agalactiae (Grp B) Assessment and Plan (1) COVID-19: Status: Acute (2) Atrial fibrillation with rapid ventricular response: Status: Acute (3) Acute UTI: Status: Acute Plan This is a 83-year-old male with pertinent history of paroxysmal atrial fibrillation not on anticoagulation, gastroesophageal reflux disease, mixed hyperlipidemia, non-insulin dependent diabetes mellitus, peripheral neuropathy, hypertension, history of spinal stenosis, GHISLAINE not on CPAP who presents to the emergency department for evaluation after a fall. 1.Generalized weakness in the setting of COVID-19 -titrate O2 to maintain sats greater than equal to 90%. -DuoNebs as needed 2.AFib with RVR -labile control; asymptomatic -Eliquis -start metoprolol 25 mg q.i.d. -titrate to rate control 3. UTI (group B strep) -continue ceftriaxone -switch to oral when appropriate 4.Hypertension -poorly controlled -Lopressor as above -consider Baldo if no improvement 5.Bvv-swogtcd-cgwrzwyka diabetes mellitus -acceptable control on current therapies -lispro correctional scale -adjust as indicated Eliquis Full code Requires ongoing hospitalization to stabilize rate control and supplemental O2 for COVID-19 Quality Stroke Does the patient have a stroke diagnosis?: No VTE Prior VTE?: No VTE Risk Level:: Medical - moderate - high VTE Device Contraindication: Treatment Not Indicated VTE Drug Contraindication: N/A - Med Ordered
--- NOTE | 2024-04-25 14:00 | MHC.CM.PN ---
Addendum entered by Alina Waters RN 04/25/24 15:02: CM MET W/PT'S LES AT BEDSIDE, LES REPORTS THEY SHOULD HAVE HOUSING W/IN 2 MOS AND THEY HAVE HELP FROM SOMEONE FROM [facility] IN [place] WHO IS ASSISTING, LES REPORTS THEY ALREADY HAVE A WC FROM [facility], LES AND [facility] ARE OPEN TO ASSISTANCE W/COMPLETING MH NARENDRA, CM TO SEND REFERRAL TO [facility]. Addendum entered by Alina Waters RN 04/25/24 14:16: CM DID CONTACT PT'S LES W/PT PERMISSION TO DETERMINE IF SHE NEEDS HELP W/PT'S MH APPLICATION HOWEVER LES REPORTS SHE WILL STOP AND SEE CM AT NURSES STATION ONCE SHE ARRIVES, CM WILL GIVE LES INFO ON WHERE SHE CAN SENIOR PHYSICIAN FREE LOANER MEDICAL EQUIPMENT. Original Note: IMM 04/25/24 DELIVERED TO BEDSIDE, PT REPORTS HE LIVES IN [place] W/HIS , PT'S DOES ASSIST PT W/NEEDS HE IS LIMITED, PT REPORTS HE TRANSFERS FROM A TRANSFER WC TO BED/TOILET/CHAIR, DENIES SERVICES AND IS OPEN TO [facility] HOWEVER HAS NOT SEEN HIS PCP DR. DOTY SINCE MARCH 2023, CM DID CONFIRM W/OFFICE THAT PT IS WELCOME BACK AND TASK FOR PCP FOLLOW-UP APPT TO BE MADE. PT UNSURE IF HE HAS A HCP AND DECLINES TO COMPLETE ONE AT THIS TIME.
[2024-04-25] MEDS: Gabapentin 300 MG CAPSULE PO (22:34)
[2024-04-25] MEDS: Benzonatate 100 MG CAPSULE 200 MG PO (22:34)
[2024-04-25] MEDS: Atorvastatin Calcium 20 MG TABLET PO (22:35)
[2024-04-25] MEDS: carvediloL 25 MG TABLET PO (22:35)
[2024-04-25] MEDS: Torsemide 20 MG TABLET PO (22:35)
[2024-04-25] MEDS: metFORMIN HCl ER 500 MG TAB.ER.24H 1000 MG PO (22:37)
[2024-04-26] VITALS (7 sets, daily range): BP systolic 98–164; BP diastolic 46–75; PULSE 52–119; RESP 18–20; TEMP 36.3–36.4; O2SAT 92–100
--- NOTE | 2024-04-26 | ECG_ITS ---
Test Reason : VTACH Blood Pressure : / mmHG Vent. Rate : 076 BPM Atrial Rate : 000 BPM P-R Int : 000 ms QRS Dur : 136 ms QT Int : 426 ms P-R-T Axes : 000 -54 -21 degrees QTc Int : 479 ms Atrial fibrillation Right bundle branch block Left anterior fascicular block Bifascicular block Abnormal ECG When compared with ECG of 26-APR-2024 05:14, Nonspecific T wave abnormality no longer evident in Anterior leads Referred By: Es Coy Electronically Signed By:SHAI FLORES
--- NOTE | 2024-04-26 05:14 | ECG_ITS ---
Test Reason : AFIB Blood Pressure : / mmHG Vent. Rate : 075 BPM Atrial Rate : 000 BPM P-R Int : 000 ms QRS Dur : 138 ms QT Int : 444 ms P-R-T Axes : 000 -49 -19 degrees QTc Int : 495 ms Atrial fibrillation Right bundle branch block Left anterior fascicular block Bifascicular block Abnormal ECG When compared with ECG of 23-APR-2024 20:15, Criteria for Septal infarct are no longer Present Nonspecific T wave abnormality, worse in Anterior leads Referred By: Es Coy Electronically Signed By:SHAI FLORES
--- NOTE | 2024-04-26 05:18 | PM.EVENT ---
Event Note Date of Service: 04/26/24 Event Note: RN reported about 20 beats of Vtach. Asymptomatic. BP 135/60. Patient is on b johan. Will obtain electrolytes including Mg Time Spent With Patient Time: Total time managing care of this patient today ____ minutes.
[2024-04-26] MEDS: Omeprazole 40 MG CAPSULE.DR PO (05:52)
--- NOTE | 2024-04-26 05:53 | PC.NURSE ---
around 0515. elementary vocal music teacher tech alerted this RN of 20 beats of vtach. pt awoke from sleep quickly to voice and exhibiting no change in mentation. pt denies changes, pain, discomfort. vitals charted. EKG performed. MD aware/visualized. BMP and Mag drawn. pt states he is comfortable and is telling jokes top staff at bedside. call pretty in reach, plan of care ongoing.
[2024-04-26 05:55] LABS: MANUAL DIFF FLAG NO
[2024-04-26 06:12] LABS: Anion Gap 12 (12-20); Blood Urea Nitrogen 17 mg/dL (9-16); Calcium 8.7 mg/dL (8.4-10.2); Carbon Dioxide 27 mmol/L (22-29); Chloride 107 mmol/L (96-108); Creatinine Clr Calc Pharmacy 59.5; Estimated Glomerular Filt Rate 55; Glucose Random 121 mg/dL (60-115); Magnesium 1.7 mg/dL (1.6-2.6); Potassium 3.9 mmol/L (3.3-5.1); Sodium 142 mmol/L (135-145)
[2024-04-26 06:13] LABS: Alanine Aminotransferase 8 U/L (0-40); Albumin Level 3.3 g/dL (3.5-5.0); Alkaline Phosphatase 59 U/L (39-117); Anion Gap 12 (12-20); Aspartate Amino Transferase 8 U/L (5-37); Bilirubin Total 0.6 mg/dL (0.0-1.0); Blood Urea Nitrogen 18 mg/dL (9-16); Calcium 8.6 mg/dL (8.4-10.2); Carbon Dioxide 27 mmol/L (22-29); Chloride 107 mmol/L (96-108); Creatinine Clr Calc Pharmacy 59.5; Estimated Glomerular Filt Rate 55; Glucose Fasting 121 mg/dL (60-99); Sodium 142 mmol/L (135-145); Total Protein 6.5 g/dL (6.5-8.0)
[2024-04-26 06:14] LABS: Basophils Percent Auto 0.3 % (0-2); Eosinophils Absolute Auto 0.1 X10*3/uL (0.0-0.4); Eosinophils Percent Auto 1.6 % (0-4); Hematocrit 29.8 % (42.0-52.0); Hemoglobin 8.9 g/dl (14.0-18.0); Imm Gran Abs Auto 0.05 X10*3/uL (0.00-0.03); Imm Gran Pct Auto 0.6 % (0.0-0.4); Lymphocytes Absolute Auto 1.2 X10*3/uL (1.2-4.9); Lymphocytes Percent Auto 15.6 % (20-40); Mean Corpuscular HGB Conc 29.9 g/dl (31.0-36.0); Mean Corpuscular Hemoglobin 28.3 pg (27.0-33.0); Mean Corpuscular Volume 94.9 fL (80.0-98.0); Mean Platelet Volume 11.8 fL (9.4-12.4); Monocytes Absolute Auto 0.7 X10*3/uL (0.1-1.2); Monocytes Percent Auto 9.5 % (2-11); Neutrophils Absolute Auto 5.6 x10*3/uL (2.0-8.3); Neutrophils Percent Auto 72.4 % (45-73); Platelet Count 146 X10*3/uL (160-400); Red Blood Count 3.14 X10*6/uL (4.60-5.80); Red Cell Distribution Width 16.3 % (11.0-16.0); White Blood Count 7.7 X10*3/uL (4.8-10.8)
[2024-04-26] MEDS: Potassium Chloride Packet 20 MEQ PACKET PO (06:38)
[2024-04-26] MEDS: Magnesium Sulfate/H2O 2 GM/50 ML PIGGYBACK IV (06:38)
--- NOTE | 2024-04-26 07:00 | CA_ITS ---
Transthoracic Echocardiogram Patient (Last, First, Middle): Milton Voss, Gender: Male Date of : 1940 Age: 83 Procedure Date: 04/26/2024 Procedure Type: Transthoracic Echocardiogram Location: [facility] [place] Height: 182.88 cm Weight: 110.68 kg BSA: 2.32 m2 Heart Rate: bpm BP: 164 / 75 mmHg [place] Worker: TO Referring MD: Es URIAS Symptoms: vtach Study Quality: Technically Difficult/Contrast ECG Rhythm: Atrial Fibrillation Conclusions: - The left ventricular systolic function is mildly decreased. The calculated ejection fraction is 45% by biplane method. - Moderately increased right ventricular cavity size. There is moderately decreased right ventricular systolic function. - The left atrium is severely dilated. - There is moderate mitral annular calcification. - There is mild to moderate tricuspid valve regurgitation. - Mild pulmonary hypertension is present. Findings Procedure Information Contrast agent, definity, is being given per protocol without apparent complications. Left Ventricle Normal left ventricular cavity size. The left ventricular systolic function is mildly decreased. The calculated ejection fraction is 45% by biplane method. There is mild global hypokinesis. Diastolic function is indeterminate on the basis of available data. There is mild septal asymmetric hypertrophy. Right Ventricle Moderately increased right ventricular cavity size. There is moderately decreased right ventricular systolic function. Atria The left atrium is severely dilated. The right atrium is moderately dilated. Aortic Valve There is a normal trileaflet aortic valve. There is no aortic valve stenosis. There is no aortic valve regurgitation. Mitral Valve There is moderate mitral annular calcification. There is trace mitral valve regurgitation. No significant mitral stenosis. Pulmonic Valve The pulmonic valve is likely normal. Tricuspid Valve There is mild to moderate tricuspid valve regurgitation. Mild pulmonary hypertension is present. Great Vessels The asc aorta is normal in size. Venous The inferior vena cava is dilated and collapses less than 50% with inspiration. Pericardium/Pleural There is a trivial pericardial effusion. Prior Study Comparison Changes noted compared to prior study dated: 04/26/2008. Decrease in LVEF. Increase in atrial size. Measurements 2D Linear Measurements IVSd: 1.23 0.6-0.9/0.6-1.0 cm LVIDd: 5.00 3.9-5.3/4.2-5.9 cm LVIDd Index: 2.16 2.4-3.2/2.2-3.1 cm/m2 LVIDs: 3.80 2.0-3.6 cm LVPWd: 1.00 0.7-1.1 cm LA Diam: 5.10 2.7-3.8/3.0-4.0 cm LAIDs Index: 2.20 1.5-2.3 cm/m2 LV Mass: 262.72 67-162/88-224 g LV Mass Index: 113.24 43-95/49-115 g/m2 LVOT Diam: 2.30 3.0+(-)1.3 cm 2D Systolic Function EF 4C: 44.40 >55% EF 2C: 43.50 >55% EF BiP: 44.50 >55% Mitral Valve MV VTI: 0.42 MV Pk Ezequiel: 1.50 MV Mn Ezequiel: 0.67 MV Pk Grad: 9.00 MV Mn Grad: 3.00 MV Pk E: 1.28 MV Decel Time: 239.00 E'Lateral: 6.31 E'Medial: 5.08 E/E' Med: 25.20 E/E' Lat: 20.30 PHT: 70.00 MVA PHT: 3.14 MVA Continuity: 1.29 Decel [place]: 5.37 Aortic Valve AoV Pk Ezequiel: 1.30 AoV Pk Grad: 7.00 LVOT LVOT Pk Ezequiel: 0.72 LVOT Mn Ezequiel: 0.48 LVOT VTI: 0.13 LVOT Pk Grad: 2.00 LVOT Mn Grad: 1.00 LVOT Diam: 2.30 LVOT Area: 4.15 Diastolic Function MV Pk E: 1.28 E'Medial: 5.08 E/E' Med: 25.20 E' Laterial: 6.31 E/E' Lat: 20.30 Right Ventricle TAPSE (mm): 13.40 TVS' Ezequiel: 7.88 Tricuspid Valve TR Pk Ezequiel: 2.88 TR Pk Grad: 33.00 RA Press: 15.00 RVSP: 48.00 Great Vessels Aorta Sinus of Valsalva: 3.77 2.0-3.[address] [place]: 2.80 1.7-3.4 cm Ao Asc: 3.50 2.1-3.4 cm Updated in Other Vendor System with Status of Final Wade Bergman MD electronically signed on 04/27/2024 8:33:00 AM with status of Final
[2024-04-26] MEDS: cefTRIAXone sodium 1 GM in 0.9 % Sodium Chloride 50 ML IV (08:33)
[2024-04-26] MEDS: Apixaban 5 MG TABLET PO ×2 (08:33→20:49)
[2024-04-26] MEDS: 0.9 % Sodium Chloride Flush 3 ML SYRINGE IVFLUSH ×3 (08:33→20:49)
[2024-04-26] MEDS: carvediloL 25 MG TABLET PO ×2 (08:33→20:49)
[2024-04-26] MEDS: Sertraline HCL 25 MG TABLET PO (08:34)
[2024-04-26] MEDS: metFORMIN HCl ER 500 MG TAB.ER.24H 1000 MG PO (08:34)
[2024-04-26] MEDS: Torsemide 20 MG TABLET 40 MG PO (08:34)
[2024-04-26 11:20] LABS: Glucose, Whole Blood 187 mg/dL (60-115)
[2024-04-26] MEDS: Insulin Lispro 100 UNIT/ML 3 ML VIAL SUBCUT (11:27)
--- NOTE | 2024-04-26 12:05 | PM.CNCAR ---
History of Present Illness History of Present Illness Date of Service: 04/26/24 Chief complaint: Fall Narrative: This is a cardiology consultation regarding ventricular tachycardia seen on telemetry. Patient states he has got atrial fibrillation but no other issues like coronary disease or congestive heart failure or in fact anything cardiac related. He states he has got minimal activity at baseline can not really ambulate much. Currently, he is in the hospital because of fall. Apparently, he was transferring from 1 chair to another and he fell in that process. Otherwise, denies any complaints like chest pains or shortness of breath or palpitations or in fact any cardiac symptoms. Per documentation, his heart rate was in the 140s in the emergency room he was given IV diltiazem. Apparently was also positive for COVID and uterine was concerning for UTI. Subsequently admitted. While on telemetry, there was a run of ventricular tachycardia and hence we are consulted. Again, patient denies any clear-cut cardiac symptoms at this time he states he is comfortable. With regard to anticoagulation history, patient states he takes Eliquis at home but in the H and P, there is mention of PAF but not on anticoagulation. Hence not clear. Review of Systems Review of Systems: Yes all other systems are reviewed and are negative Constitutional: Constitutional: Reports as per HPI and Reports no additional constitutional complaints Eyes: Eyes: Reports as per HPI and Denies no additional eye complaints ENT: Denies system reviewed and no additional complaints, except as documented and Reports as per HPI Cardiovascular: Cardiovascular: Reports as per HPI, Reports no additional cardiovascular complaints, Denies acrocyanosis, Denies cool extremities, Denies chest pain, Denies leg edema, Denies lightheadedness, Denies palpitations and Denies dyspnea Respiratory: Respiratory: Reports as per HPI, Denies no additional respiratory complaints and Denies dyspnea Gastrointestinal: Gastrointestinal: Reports as per HPI and Denies no additional gastrointestinal complaints Genitourinary: Genitourinary: Reports no additional male genitourinary complaints and Reports as per HPI Musculoskeletal: Musculoskeletal: Reports no additional musculoskeletal complaints and Reports as per HPI Integumentary/Breasts: Skin/Breast: Reports system reviewed and no additional complaints, except as docu Neurologic: Reports system reviewed and no additional complaints, except as documented and Reports as per HPI Psychiatric: Psychiatric: Reports no additional psychiatric complaints and Reports as per HPI Endocrine: Endocrine: Reports no additional endocrine complaints, Reports as per HPI and Denies palpitations Hematologic/Lymphatic: Hematologic/Lymphatic: Reports no additional hematologic/lymphatic complaints and Reports as per HPI Allergic/Immunologic: Allergic/Immunologic: Reports no additional allergic/immunologic complaints and Reports as per HPI [facility] Past Medical History Medical History (Updated 04/26/24 @ 12:13 by Wade Bergman MD) Hypertension Hyperlipidemia Obstructive sleep apnea Spinal stenosis Anemia Chronic GERD Chronic kidney disease, stage 3 CHF (congestive heart failure) Hx of senior care use of blood thinners Atrial fibrillation Type 2 diabetes mellitus Neuropathy Family History Family History Unknown No problems noted. Social History Social History Household Members: Spouse Housing: House Do you presently have visiting nurse or other home services: No Patient Tobacco Use Status: Never used Tobacco Smoked in Last 30 Days: Yes Use of substances other than those prescribed or required for medical reasons: No Currently Displaying Signs/Symptoms of Drug Intoxication Withdrawal: No Have you been hit, kicked, punched, or otherwise hurt by someone within the past year? If so, by whom?: No Do you feel safe in your current relationship?: Yes Is there a partner from a previous relationship who is making you feel unsafe now?: No Are you made to feel afraid or neglected: No Advance Directives: Yes Advance Directives on File: Yes Advance Directives Date on File: 04/24/24 Do you have a plan to hurt others: No Plan Recently lost weight without trying: No Nutrition Risks: No Nutritional Risk service: No Meds Allergies Allergy/AdvReac Type Severity Reaction Status Date / Time Penicillins Allergy Hives Verified 04/23/24 19:14 Active Medications: Current Medications Acetaminophen (Acetaminophen 325 Mg Tablet) 650 mg PO Q6H PRN PRN Reason: Pain, Mild (Pain Scale 1-3), fever or headache Last Admin: 04/25/24 09:15 Dose: 650 mg Apixaban (Apixaban 5 Mg Tablet) 5 mg PO BID [facility] Last Admin: 04/26/24 08:33 Dose: 5 mg Atorvastatin Calcium (Atorvastatin Calcium 20 Mg Tablet) 20 mg PO BEDTIME [facility] Last Admin: 04/25/24 22:35 Dose: 20 mg Benzonatate (Benzonatate 100 Mg Capsule) 200 mg PO TID PRN PRN Reason: Cough Last Admin: 04/25/24 22:34 Dose: 200 mg Calcium Carbonate (Calcium Carbonate 750 Mg Tab.Chew) 750 mg PO Q4H PRN PRN Reason: Heartburn Carvedilol (Carvedilol 25 Mg Tablet) 25 mg PO BID [facility]; Protocol Last Admin: 04/26/24 08:33 Dose: 25 mg Gabapentin (Gabapentin 300 Mg Capsule) 300 mg PO BEDTIME [facility] Last Admin: 04/25/24 22:34 Dose: 300 mg Glucose (Glucose Gel 15 Gm Gel..Gram.) 15 gm PO Q15M PRN; Protocol PRN Reason: per Hypoglycemia Standing Ord. Ceftriaxone Sodium 1 gm/ (Sodium Chloride) 50 mls @ 100 mls/hr IV Q24H [facility] Last Infusion: 04/26/24 09:37 Dose: Infused Dextrose (D10) 250 mls @ 750 mls/hr IV Q15M PRN; Protocol PRN Reason: per Hypoglycemia Standing Ord. Insulin Human Lispro (Insulin Lispro 100 Unit/Ml 3 Ml Vial) 0 unit SUBCUT QIDACHS [facility]; Protocol Last Admin: 04/26/24 11:27 Dose: 2 unit Magnesium Hydroxide (Milk Of Magnesia 30 Ml Oral.Susp) 30 ml PO DAILY PRN PRN Reason: Constipation Melatonin (Melatonin 3 Mg Tablet) 6 mg PO BEDTIME PRN PRN Reason: Insomnia Omeprazole (Omeprazole 40 Mg Capsule.Dr) 40 mg PO DAILY@0630 [facility] Last Admin: 04/26/24 05:52 Dose: 40 mg Ondansetron HCl (Ondansetron Hcl 4 Mg/2 Ml Vial) 4 mg IVPUSH Q8H PRN PRN Reason: Nausea and Vomiting Sertraline HCl (Sertraline Hcl 25 Mg Tablet) 25 mg PO DAILY [facility] Last Admin: 04/26/24 08:34 Dose: 25 mg Sodium Chloride (0.9 % Sodium Chloride Flush 3 Ml Syringe) [facility] Last Admin: 04/26/24 08:33 Dose: 3 ml Torsemide (Torsemide 20 Mg Tablet) 20 mg PO BEDTIME [facility]; Protocol Last Admin: 04/25/24 22:35 Dose: 20 mg Torsemide (Torsemide 20 Mg Tablet) 40 mg PO DAILY [facility]; Protocol Last Admin: 04/26/24 08:34 Dose: 40 mg Tramadol HCl (Tramadol Hcl 50 Mg Tablet) 25 mg PO Q6H PRN PRN Reason: Pain, Moderate(Pain Scale 4-6) Home Medications ?Medication ?Instructions ?Recorded ?Confirmed ?Last Taken ?Type apixaban 5 mg tablet (Eliquis) 5 mg PO BID 04/24/24 04/24/24 Unknown History carvedilol 25 mg tablet 25 mg PO BID 04/24/24 04/24/24 Unknown History diltiazem HCl 240 mg capsule,24 240 mg PO DAILY 04/24/24 04/24/24 Unknown History hr,extended release glimepiride 1 mg tablet 1 mg PO DAILY@62904/24/24 04/24/24 Unknown History metformin 500 mg tablet,extended 1,000 mg PO BID 04/24/24 04/24/24 Unknown History release 24 hr omeprazole 40 mg capsule,delayed 40 mg PO DAILY@62904/24/24 04/24/24 Unknown History release sertraline 25 mg tablet 25 mg PO DAILY 04/24/24 04/24/24 Unknown History simvastatin 40 mg tablet 40 mg PO BEDTIME 04/24/24 04/24/24 Unknown History torsemide 20 mg tablet 20 mg PO BEDTIME 04/24/24 04/24/24 Unknown History torsemide 20 mg tablet 40 mg PO DAILY 04/24/24 04/24/24 Unknown History Physical Exam Vital Signs: Vital Signs: Last Vital Signs Temp 97.6 F 04/26/24 11:14 Pulse 81 04/26/24 11:14 Resp 20 04/26/24 11:14 BP 134/64 04/26/24 11:14 Pulse Ox 93 04/26/24 11:14 O2 Del Method Room Air 04/26/24 11:14 O2 Flow Rate 2 04/26/24 07:15 BMI result Body Mass Index 33.1 Const: General: comfortable and no acute distress Orientation/consciousness: patient oriented x3 HEENT: Other: Unremarkable Head: Yes normal to inspection Neck: Neck: Yes normal visual inspection Chest: Chest palpation & inspection: normal inspection of the chest Resp: Auscultation: clear to auscultation bilaterally Cardio: Palpation: normal PMI Heart sounds: S1 normal heart sound present, S2 normal heart sound present, no gallops, no murmurs and no rubs GI: Palpation (GI): Soft to palpation Back/Spine/Pelvis: Other: unremarkable Skin: General skin exam: no rashes or lesions noted Neuro: General: patient oriented x3 Extrem: General: Yes normal to inspection Psych: Mental Status: mental status grossly normal Objective Labs and Meds 04/26/24 05:50 04/26/24 05:50 Lab results: Laboratory Results - last 24 hr 04/26/24 04/26/24 04/26/24 05:50 05:50 05:50 WBC 7.7 RBC 3.14 L Hgb 8.9 L Hct 29.8 L MCV 94.9 MCH 28.3 MCHC 29.9 L RDW 16.3 H Plt Count 146 L MPV 11.8 Immature Gran % (Auto) 0.6 H Neut % (Auto) 72.4 Lymph % (Auto) 15.6 L [place] % (Auto) 9.5 Eos % (Auto) 1.6 Baso % (Auto) 0.3 Lymph # (Auto) 1.2 [place] # (Auto) 0.7 Eos # (Auto) 0.1 Baso # (Auto) 0.0 Abs Immat Gran (auto) 0.05 H Absolute Neuts (auto) 5.6 Absolute Nucleated RBC 0.000 Nucleated RBC % (auto) 0.0 Sodium 142 142 Potassium 4.0 3.9 Chloride 107 Carbon Dioxide Anion Gap BUN Creatinine Estim Creat Clear Calc Estimated GFR POC Glucose Random Glucose Fasting Glucose Calcium Magnesium Total Bilirubin AST ALT Alkaline Phosphatase Total Protein Albumin 04/26/24 04/26/24 04/26/24 05:50 05:50 05:50 WBC RBC Hgb Hct MCV MCH MCHC RDW Plt Count MPV Immature Gran % (Auto) Neut % (Auto) Lymph % (Auto) [place] % (Auto) Eos % (Auto) Baso % (Auto) Lymph # (Auto) [place] # (Auto) Eos # (Auto) Baso # (Auto) Abs Immat Gran (auto) Absolute Neuts (auto) Absolute Nucleated RBC Nucleated RBC % (auto) Sodium Potassium Chloride 107 Carbon Dioxide 27 27 Anion Gap 12 12 BUN 18 H Creatinine Estim Creat Clear Calc Estimated GFR POC Glucose Random Glucose Fasting Glucose Calcium Magnesium Total Bilirubin AST ALT Alkaline Phosphatase Total Protein Albumin 04/26/24 04/26/24 04/26/24 05:50 05:50 05:50 WBC RBC Hgb Hct MCV MCH MCHC RDW Plt Count MPV Immature Gran % (Auto) Neut % (Auto) Lymph % (Auto) [place] % (Auto) Eos % (Auto) Baso % (Auto) Lymph # (Auto) [place] # (Auto) Eos # (Auto) Baso # (Auto) Abs Immat Gran (auto) Absolute Neuts (auto) Absolute Nucleated RBC Nucleated RBC % (auto) Sodium Potassium Chloride Carbon Dioxide Anion Gap BUN 17 H Creatinine 1.25 1.25 Estim Creat Clear Calc 59.5 59.5 Estimated GFR 55 POC Glucose Random Glucose Fasting Glucose Calcium Magnesium Total Bilirubin AST ALT Alkaline Phosphatase Total Protein Albumin 04/26/24 04/26/24 04/26/24 05:50 05:50 11:13 WBC RBC Hgb Hct MCV MCH MCHC RDW Plt Count MPV Immature Gran % (Auto) Neut % (Auto) Lymph % (Auto) [place] % (Auto) Eos % (Auto) Baso % (Auto) Lymph # (Auto) [place] # (Auto) Eos # (Auto) Baso # (Auto) Abs Immat Gran (auto) Absolute Neuts (auto) Absolute Nucleated RBC Nucleated RBC % (auto) Sodium Potassium Chloride Carbon Dioxide Anion Gap BUN Creatinine Estim Creat Clear Calc Estimated GFR 55 POC Glucose 187 H Random Glucose 121 H Fasting Glucose 121 H Calcium 8.6 8.7 Magnesium 1.7 Total Bilirubin 0.6 AST 8 ALT 8 Alkaline Phosphatase 59 Total Protein 6.5 Albumin 3.3 L ECG Interpretation: EKG from the same shows probable flutter; right bundle-branch block and left anterior fascicular block. In other EKG from 23 of April, similar findings but the rate is faster at 102/Min. EKG prior to this from 2008 and that shows sinus rhythm with PACs. Assessment and Plan (1) Ventricular tachycardia: Status: Acute (2) Atrial fibrillation: Status: Acute (3) COVID-19: Status: Acute (4) Elevated troponin: Status: Acute Plan Telemetry strip reviewed. There is about a 48 beat run of monomorphic appearing ventricular tachycardia. After the 1st part of the VT, there is a very short break where it seems he might be going back into atrial fibrillation conducted QRS but then goes back into wide complex rhythm. Then, back in probably atrial flutter versus fibrillation but some areas difficult to say as it is very regular appearing. From 23 of April, troponin levels are 45 and 48. Cardiac BNP slightly elevated. Overall, monomorphic VT there is usually not ischemic. Setting of COVID. Troponin leak could be demand related. Could have underlying coronary disease. Recheck. Obtain repeat EKG/echocardiogram. Continue beta-blockers. There is no further ventricular ectopy at this time on telemetry or VT episodes. If indeed they are recurrent, can do amiodarone. Probably diagnostic catheterization once medical issues are better. Timing to be decided. Will follow with you. Discussed with hospitalist. Procedures Date of Service Date of Service: 04/26/24
[2024-04-26 13:35] LABS: Troponin-I High Sensitivity 34.3 ng/L (<3.5-35.0)
--- NOTE | 2024-04-26 13:49 | HO.PM.IMPN ---
Subjective Subjective Date of Service: 04/26/24 Interval History: Seen and examined this morning Follow-up for COVID-19, fall Had ventricular tachycardia early this morning, reportedly asymptomatic Denies shortness of breath, cough, chest pain, palpitations Review of Systems Review of Systems: Yes all other systems are reviewed and are negative Constitutional Constitutional: Denies chills and Denies fever(s) Cardiovascular Cardiovascular: Denies chest pain, Denies palpitations and Denies dyspnea Respiratory Respiratory: Denies cough and Denies dyspnea Endocrine Endocrine: Denies palpitations Physical Exam Vital Signs: Vital Signs: Last Vital Signs Temp 97.6 F 04/26/24 11:14 Pulse 81 04/26/24 11:14 Resp 20 04/26/24 11:14 BP 134/64 04/26/24 11:14 Pulse Ox 93 04/26/24 11:14 O2 Del Method Room Air 04/26/24 11:14 O2 Flow Rate 2 04/26/24 07:15 BMI result Body Mass Index 33.1 Const: General: cooperative, comfortable, no acute distress, alert and awake Nutritional Appearance: obese Orientation/consciousness: patient oriented x3 Resp: Effort & Inspection: normal respiratory effort, able to speak in complete sentences, no respiratory distress and no use of accessory muscles Auscultation: clear to auscultation bilaterally Cardio: Rate: regular rate GI: Inspection: No distended Palpation (GI): Soft to palpation and nontender Neuro: Other: Grossly nonfocal General: patient oriented x3 Extrem: Other: b/l leg edema Objective Data Active Medications Acetaminophen (Acetaminophen 325 Mg Tablet) 650 mg PO Q6H PRN PRN Reason: Pain, Mild (Pain Scale 1-3), fever or headache Last Admin: 04/25/24 09:15 Dose: 650 mg Documented By: MEL Apixaban (Apixaban 5 Mg Tablet) 5 mg PO BID [facility] Last Admin: 04/26/24 08:33 Dose: 5 mg Documented By: NESSA Atorvastatin Calcium (Atorvastatin Calcium 20 Mg Tablet) 20 mg PO BEDTIME [facility] Last Admin: 04/25/24 22:35 Dose: 20 mg Documented By: LAFLAMAndrea Benzonatate (Benzonatate 100 Mg Capsule) 200 mg PO TID PRN PRN Reason: Cough Last Admin: 04/25/24 22:34 Dose: 200 mg Documented By: LOUANN Calcium Carbonate (Calcium Carbonate 750 Mg Tab.Chew) 750 mg PO Q4H PRN PRN Reason: Heartburn Carvedilol (Carvedilol 25 Mg Tablet) 25 mg PO BID [facility] [place]; Protocol Last Admin: 04/26/24 08:33 Dose: 25 mg Documented By: NESSA Gabapentin (Gabapentin 300 Mg Capsule) 300 mg PO BEDTIME [facility] Last Admin: 04/25/24 22:34 Dose: 300 mg Documented By: LOUANN Glucose (Glucose Gel 15 Gm Gel..Gram.) 15 gm PO Q15M PRN; Protocol PRN Reason: per Hypoglycemia Standing Ord. Ceftriaxone Sodium 1 gm/ (Sodium Chloride) 50 mls @ 100 mls/hr IV Q24H [facility] [place] Last Infusion: 04/26/24 09:37 Dose: Infused Documented By: NESSA Dextrose (D10) 250 mls @ 750 mls/hr IV Q15M PRN; Protocol PRN Reason: per Hypoglycemia Standing Ord. Insulin Human Lispro (Insulin Lispro 100 Unit/Ml 3 Ml Vial) 0 unit SUBCUT QIDACHS [facility] [place]; Protocol Last Admin: 04/26/24 11:27 Dose: 2 unit Documented By: NESSA Magnesium Hydroxide (Milk Of Magnesia 30 Ml Oral.Susp) 30 ml PO DAILY PRN PRN Reason: Constipation Melatonin (Melatonin 3 Mg Tablet) 6 mg PO BEDTIME PRN PRN Reason: Insomnia Omeprazole (Omeprazole 40 Mg Capsule.Dr) 40 mg PO DAILY@0630 [facility] [place] Last Admin: 04/26/24 05:52 Dose: 40 mg Documented By: LOUANN Ondansetron HCl (Ondansetron Hcl 4 Mg/2 Ml Vial) 4 mg IVPUSH Q8H PRN PRN Reason: Nausea and Vomiting Sertraline HCl (Sertraline Hcl 25 Mg Tablet) 25 mg PO DAILY [facility] [place] Last Admin: 04/26/24 08:34 Dose: 25 mg Documented By: NESSA Sodium Chloride (0.9 % Sodium Chloride Flush 3 Ml Syringe) 3 ml IVFLUSH QSHIFT [facility] [place] Last Admin: 04/26/24 08:33 Dose: 3 ml Documented By: NESSA Torsemide (Torsemide 20 Mg Tablet) 20 mg PO BEDTIME [facility] [place]; Protocol Last Admin: 04/25/24 22:35 Dose: 20 mg Documented By: LOUANN Torsemide (Torsemide 20 Mg Tablet) 40 mg PO DAILY [facility]; Protocol Last Admin: 04/26/24 08:34 Dose: 40 mg Documented By: NESSA Tramadol HCl (Tramadol Hcl 50 Mg Tablet) 25 mg PO Q6H PRN PRN Reason: Pain, Moderate(Pain Scale 4-6) Labs 04/26/24 05:50 04/26/24 05:50 Labs: Laboratory Results - last 24 hr 04/26/24 04/26/24 04/26/24 05:50 05:50 05:50 MCV 94.9 MCH 28.3 MCHC 29.9 L RDW 16.3 H Plt Count 146 L MPV 11.8 Immature Gran % (Auto) 0.6 H Neut % (Auto) 72.4 Lymph % (Auto) 15.6 L [place] % (Auto) 9.5 Eos % (Auto) 1.6 Baso % (Auto) 0.3 Lymph # (Auto) 1.2 [place] # (Auto) 0.7 Eos # (Auto) 0.1 Baso # (Auto) 0.0 Abs Immat Gran (auto) 0.05 H Absolute Neuts (auto) 5.6 Absolute Nucleated RBC 0.000 Nucleated RBC % (auto) 0.0 Anion Gap 12 12 Estim Creat Clear Calc 59.5 59.5 Estimated GFR 55 POC Glucose Random Glucose Fasting Glucose Calcium Magnesium Total Bilirubin AST ALT Alkaline Phosphatase Troponin I High Sens Total Protein Albumin 04/26/24 04/26/24 04/26/24 05:50 05:50 11:13 MCV MCH MCHC RDW Plt Count MPV Immature Gran % (Auto) Neut % (Auto) Lymph % (Auto) [place] % (Auto) Eos % (Auto) Baso % (Auto) Lymph # (Auto) [place] # (Auto) Eos # (Auto) Baso # (Auto) Abs Immat Gran (auto) Absolute Neuts (auto) Absolute Nucleated RBC Nucleated RBC % (auto) Anion Gap Estim Creat Clear Calc Estimated GFR 55 POC Glucose 187 H Random Glucose 121 H Fasting Glucose 121 H Calcium 8.6 8.7 Magnesium 1.7 Total Bilirubin 0.6 AST 8 ALT 8 Alkaline Phosphatase 59 Troponin I High Sens Total Protein 6.5 Albumin 3.3 L 04/26/24 12:56 MCV MCH MCHC RDW Plt Count MPV Immature Gran % (Auto) Neut % (Auto) Lymph % (Auto) [place] % (Auto) Eos % (Auto) Baso % (Auto) Lymph # (Auto) [place] # (Auto) Eos # (Auto) Baso # (Auto) Abs Immat Gran (auto) Absolute Neuts (auto) Absolute Nucleated RBC Nucleated RBC % (auto) Anion Gap Estim Creat Clear Calc Estimated GFR POC Glucose Random Glucose Fasting Glucose Calcium Magnesium Total Bilirubin AST ALT Alkaline Phosphatase Troponin I High Sens 34.3 Total Protein Albumin Microbiology Microbiology Results: Microbiology 04/23/24 21:30 Urine Culture - Final Urine clean catch - Clean Catch Midstream Strep agalactiae (Grp B) Assessment and Plan (1) Atrial fibrillation: Status: Acute (2) Ventricular tachycardia: Status: Acute Plan This is a 83-year-old male with pertinent history of paroxysmal atrial fibrillation not on anticoagulation, gastroesophageal reflux disease, mixed hyperlipidemia, non-insulin dependent diabetes mellitus, peripheral neuropathy, hypertension, history of spinal stenosis, GHISLAINE not on CPAP who presents to the emergency department for evaluation after a fall. Generalized weakness in the setting of COVID-19 weaned to room air DuoNebs as needed AFib with RVR asymptomatic HR uncontrolled continue AC with Eliquis continue baseline coreg resume home dose of cardizem NSVT Follow electrolytes Echocardiogram pending Continue beta-johan Cardiology following, possible cardiac catheterization, timing tbd UTI (group B strep) continue ceftriaxone, d/c with po ceftin Hypertension continue coreg, resume cardizem [id number] diabetes mellitus Hold glimepiride, metformin SSI, POCs ?CHF pt denies no echo in system but on torsemide at baseline continue torsemide echo pending normocytic anemia No baseline in system Above transfusion threshold Mood Continue sertraline HLD Continue statin gerd Continue omeprazole GHISLAINE ?no cpap Eliquis Full code dispo - PT eval pending Requires ongoing hospitalization to stabilize rate control, further cardiac workup due to NSVT Quality Stroke Does the patient have a stroke diagnosis?: No VTE Prior VTE?: No VTE Risk Level:: Medical - moderate - high VTE Device Contraindication: Treatment Not Indicated VTE Drug Contraindication: N/A - Med Ordered
[2024-04-26 16:07] LABS: Glucose, Whole Blood 136 mg/dL (60-115)
[2024-04-26] MEDS: dilTIAZem HCL CD 240 MG CAP.ER.DEG PO (16:16)
[2024-04-26] MEDS: Atorvastatin Calcium 20 MG TABLET PO (20:48)
[2024-04-26] MEDS: guaiFENesin DM 600/30 1 TAB TAB.ER.12H PO (20:49)
[2024-04-26] MEDS: Gabapentin 300 MG CAPSULE PO (20:49)
[2024-04-26 20:59] LABS: Glucose, Whole Blood 124 mg/dL (60-115)
[2024-04-26] MEDS: Torsemide 20 MG TABLET PO (21:00)
[2024-04-27] VITALS (16 sets, daily range): BP systolic 48–179; BP diastolic 29–149; PULSE 38–92; RESP 18–20; TEMP 36.1–36.9; O2SAT 90–98
[2024-04-27] MEDS: traMADoL HCL 50 MG TABLET 25 MG PO (05:19)
[2024-04-27] MEDS: Omeprazole 40 MG CAPSULE.DR PO (05:20)
[2024-04-27 06:45] LABS: Anion Gap 10 (12-20); Blood Urea Nitrogen 22 mg/dL (9-16); Calcium 8.8 mg/dL (8.4-10.2); Carbon Dioxide 32 mmol/L (22-29); Chloride 103 mmol/L (96-108); Creatinine Clr Calc Pharmacy 45.6; Estimated Glomerular Filt Rate 41; Glucose Random 124 mg/dL (60-115); Magnesium 1.7 mg/dL (1.6-2.6); Potassium 4.4 mmol/L (3.3-5.1); Sodium 141 mmol/L (135-145)
[2024-04-27 07:43] LABS: Glucose, Whole Blood 106 mg/dL (60-115)
[2024-04-27] MEDS: Sertraline HCL 25 MG TABLET PO (08:24)
[2024-04-27] MEDS: dilTIAZem HCL CD 240 MG CAP.ER.DEG PO (08:24)
[2024-04-27] MEDS: Torsemide 20 MG TABLET 40 MG PO (08:25)
[2024-04-27] MEDS: carvediloL 25 MG TABLET PO (08:25)
[2024-04-27] MEDS: guaiFENesin DM 600/30 1 TAB TAB.ER.12H PO (08:25)
[2024-04-27] MEDS: 0.9 % Sodium Chloride Flush 3 ML SYRINGE IVFLUSH ×2 (08:25→17:39)
[2024-04-27] MEDS: Apixaban 5 MG TABLET PO (08:25)
[2024-04-27] MEDS: Benzonatate 100 MG CAPSULE 200 MG PO (08:25)
[2024-04-27] MEDS: cefTRIAXone sodium 1 GM in 0.9 % Sodium Chloride 50 ML IV (08:26)
--- NOTE | 2024-04-27 10:12 | PM.PNCARD ---
Subjective Subjective Date of Service: 04/27/24 Interval history: He states that he is feeling fine. No new complaints. No angina. Review of Systems Review of Systems Yes all other systems are reviewed and are negative Constitutional: Reports as per HPI and Reports no additional constitutional complaints Eyes: Reports as per HPI and Denies no additional eye complaints Denies system reviewed and no additional complaints, except as documented and Reports as per HPI Cardiovascular: Reports as per HPI, Reports no additional cardiovascular complaints, Denies acrocyanosis, Denies cool extremities, Denies chest pain, Denies leg edema, Denies lightheadedness, Denies palpitations and Denies dyspnea Respiratory: Reports as per HPI, Denies no additional respiratory complaints and Denies dyspnea Gastrointestinal: Reports as per HPI and Denies no additional gastrointestinal complaints Genitourinary: Reports no additional male genitourinary complaints and Reports as per HPI Musculoskeletal: Reports no additional musculoskeletal complaints and Reports as per HPI Skin/Breast: Reports system reviewed and no additional complaints, except as docu Reports system reviewed and no additional complaints, except as documented and Reports as per HPI Psychiatric: Reports no additional psychiatric complaints and Reports as per HPI Endocrine: Reports no additional endocrine complaints, Reports as per HPI and Denies palpitations Hematologic/Lymphatic: Reports no additional hematologic/lymphatic complaints and Reports as per HPI Allergic/Immunologic: Reports no additional allergic/immunologic complaints and Reports as per HPI Physical Exam Vital Signs: Last Vital Signs Temp 97.6 F 04/27/24 07:37 Pulse 74 04/27/24 07:37 Resp 18 04/27/24 07:37 BP 155/65 H 04/27/24 07:37 Pulse Ox 96 04/27/24 07:37 O2 Del Method Nasal Cannula 04/27/24 07:37 O2 Flow Rate 1 04/27/24 07:37 BMI result Body Mass Index 33.1 Const General: comfortable and no acute distress Orientation/consciousness: patient oriented x3 HEENT Other: Unremarkable Head: Yes normal to inspection Neck Neck: Yes normal visual inspection Chest Chest palpation & inspection: normal inspection of the chest Resp Auscultation: clear to auscultation bilaterally Cardio Palpation: normal PMI Heart sounds: S1 normal heart sound present, S2 normal heart sound present, no gallops, no murmurs and no rubs GI Palpation (GI): Soft to palpation Back/Spine/Pelvis Other: unremarkable Skin General skin exam: no rashes or lesions noted Neuro General: patient oriented x3 Extrem General: Yes normal to inspection Psych Mental Status: mental status grossly normal Objective Labs and Meds 04/26/24 05:50 04/27/24 06:08 Lab results: Laboratory Results - last 24 hr 04/26/24 04/26/24 04/26/24 11:13 12:56 16:04 Sodium Potassium Chloride Carbon Dioxide Anion Gap BUN Creatinine Estim Creat Clear Calc Estimated GFR POC Glucose 187 H 136 H Random Glucose Calcium Magnesium Troponin I High Sens 34.3 04/26/24 04/27/24 04/27/24 20:48 06:08 07:38 Sodium 141 Potassium 4.4 Chloride 103 Carbon Dioxide 32 H Anion Gap 10 L BUN 22 H Creatinine 1.63 H Estim Creat Clear Calc 45.6 Estimated GFR 41 POC Glucose 124 H 106 Random Glucose 124 H Calcium 8.8 Magnesium 1.7 Troponin I High Sens Progress Note: A&P Assessment and plan (1) Ventricular tachycardia: Status: Acute (2) Atrial fibrillation: Status: Acute (3) COVID-19: Status: Acute (4) Elevated troponin: Status: Acute Plan Telemetry strip reviewed. There is about a 48 beat run of monomorphic appearing ventricular tachycardia. After the 1st part of the VT, there is a very short break where it seems he might be going back into atrial fibrillation conducted QRS but then goes back into wide complex rhythm. Then, back in probably atrial flutter versus fibrillation but some areas difficult to say as it is very regular appearing. Troponin levels are 45, 48 and 34. Cardiac BNP slightly elevated. Overall, monomorphic VT there is usually not ischemic. Setting of COVID. Troponin leak could be demand related. Could have underlying coronary disease but does not appear to be unstable plaque. He can continue beta-blockers. There is no further ventricular ectopy RVT over the last 24 hours. In case recurrent, we can try amiodarone. Originally plan for diagnostic catheterization on Tuesday; however, there is a bump in creatinine. Hence that will need to be resolved before any transfer. Hold all nephrotoxic meds. Also, Eliquis will need to be held for the last 4 doses and hence will need to be switched to heparin for that-pending trend in creatinine. We will follow with you. Discussed with hospitalist. Time Spent With Patient Time: Total time managing care of this patient today ____ minutes. Progress Note: Quality Stroke Does the patient have a stroke diagnosis?: No Procedures Date of Service Date of Service: 04/27/24
[2024-04-27 11:32] LABS: Glucose, Whole Blood 180 mg/dL (60-115)
--- NOTE | 2024-04-27 12:04 | MHC.CM.PN ---
PT rec STR for pt, CM met with pt. today and he said he is in agreement to going to [facility], [facility] accepting and awaiting DC. Pt requiring ongoing care for cardiac work up. CM to follow for DC needs.
[2024-04-27] MEDS: ondansetron HCL 4 MG/2 ML VIAL IVPUSH ×2 (12:45→17:40)
[2024-04-27 12:50] LABS: Glucose, Whole Blood 150 mg/dL (60-115)
--- NOTE | 2024-04-27 13:06 | PC.NURSE ---
This RN notified PA: Es Coy about patients heart rate; pt heart rate as low as 32 but not sustaining however, ranging between 35-45. This RN went in to answer call pretty when pt stated i don't feel well, i feel dizzy and nauseas . Pt lunch tray still at bedside, at which patient did not touch. Zofran given with some effectiveness. Blood sugar checked; 150 during this time; no insulin given per OCT. Blood pressure obtained at this time: 84/60 manual, hr: 35. Pacer pads applied at this time. Pt then stated i feel really tired . Second IV line placed. Repeat blood pressure taken 73/34 manual. Provider aware; LR 250ml bolus ordered. Blood pressure rechecked again 74/40 manual. Pt still mentating at this time A&Ox4; able to make needs known, carry a conversation, and follow commands. Pt on room air; no sign of respiratory distress, O2 ranging from 88-92. Cardiac/Vascular Sonographer at bedside at this time; recommending critical care consult and ICU bed. Transfer orders placed; pt transferred by this RN and charge nurse.
--- NOTE | 2024-04-27 13:13 | ECG_ITS ---
Test Reason : bradycardia Blood Pressure : / mmHG Vent. Rate : 040 BPM Atrial Rate : 000 BPM P-R Int : 000 ms QRS Dur : 134 ms QT Int : 570 ms P-R-T Axes : 000 -51 -40 degrees QTc Int : 464 ms Atrial fibrillation with slow ventricular response Right bundle branch block Left anterior fascicular block Bifascicular block T wave abnormality, consider lateral ischemia Abnormal ECG When compared with ECG of 26-APR-2024 12:29, Vent. rate has decreased BY 36 BPM T wave inversion now evident in Anterior leads Referred By: Es Coy Electronically Signed By:SHAI FLORES
[2024-04-27 13:43] LABS: Glucose, Whole Blood 138 mg/dL (60-115)
--- NOTE | 2024-04-27 13:47 | HO.PM.IMPN ---
Subjective Subjective Date of Service: 04/27/24 Interval History: seen and examined this morning follow up for Covid 19, afib, NSVT no further vtach overnight denies sob early afternoon patient became bradycardic, HR in the 30s, blood pressure down to 80s manually and patient reported nausea discussed with cardiology and ICU, will be transferred to ICU Review of Systems Review of Systems: Yes all other systems are reviewed and are negative Constitutional Constitutional: Denies chills and Denies fever(s) Cardiovascular Cardiovascular: Denies dyspnea Respiratory Respiratory: Denies dyspnea Gastrointestinal Gastrointestinal: Denies abdominal pain Physical Exam Vital Signs: Vital Signs: Last Vital Signs Temp 98.4 F 04/27/24 11:47 Pulse 68 04/27/24 12:27 Resp 18 04/27/24 11:47 BP 74/40 L 04/27/24 13:38 Pulse Ox 94 04/27/24 12:27 O2 Del Method Room Air 04/27/24 11:47 O2 Flow Rate 1 04/27/24 07:37 BMI result Body Mass Index 33.1 Const: General: cooperative, comfortable, no acute distress, alert and awake Nutritional Appearance: obese Orientation/consciousness: patient oriented x3 Resp: Effort & Inspection: normal respiratory effort, able to speak in complete sentences, no respiratory distress and no use of accessory muscles Auscultation: clear to auscultation bilaterally Cardio: Rate: bradycardic GI: Inspection: No distended Palpation (GI): Soft to palpation and nontender Neuro: Other: Grossly nonfocal General: patient oriented x3 Extrem: Other: b/l leg edema Objective Data Active Medications Acetaminophen (Acetaminophen 325 Mg Tablet) 650 mg PO Q6H PRN PRN Reason: Pain, Mild (Pain Scale 1-3), fever or headache Last Admin: 04/25/24 09:15 Dose: 650 mg Documented By: MEL Apixaban (Apixaban 5 Mg Tablet) 5 mg PO BID [facility] Last Admin: 04/27/24 08:25 Dose: 5 mg Documented By: TIFFANIE Atorvastatin Calcium (Atorvastatin Calcium 20 Mg Tablet) 20 mg PO BEDTIME [facility] Last Admin: 04/26/24 20:48 Dose: 20 mg Documented By: KIERSTENLAMAndrea Benzonatate (Benzonatate 100 Mg Capsule) 200 mg PO TID PRN PRN Reason: Cough Last Admin: 04/27/24 08:25 Dose: 200 mg Documented By: TIFFANIE Calcium Carbonate (Calcium Carbonate 750 Mg Tab.Chew) 750 mg PO Q4H PRN PRN Reason: Heartburn Gabapentin (Gabapentin 300 Mg Capsule) 300 mg PO BEDTIME [facility] Last Admin: 04/26/24 20:49 Dose: 300 mg Documented By: LOUANN Glucose (Glucose Gel 15 Gm Gel..Gram.) 15 gm PO Q15M PRN; Protocol PRN Reason: per Hypoglycemia Standing Ord. Guaifenesin/Dextromethorphan (Guaifenesin Dm 600/30 1 Tab Tab.Er.12h) 1 tab PO BID PRN PRN Reason: Cough Last Admin: 04/27/24 08:25 Dose: 1 tab Documented By: TIFFANIE Ceftriaxone Sodium 1 gm/ (Sodium Chloride) 50 mls @ 100 mls/hr IV Q24H [facility] Last Infusion: 04/27/24 09:22 Dose: Infused Documented By: TIFFANIE Dextrose (D10) 250 mls @ 750 mls/hr IV Q15M PRN; Protocol PRN Reason: per Hypoglycemia Standing Ord. Sodium Chloride (Ns) 500 mls @ 250 mls/hr IVCONT .Q2H [facility] Stop: 04/27/24 14:14 Insulin Human Lispro (Insulin Lispro 100 Unit/Ml 3 Ml Vial) 0 unit SUBCUT QIDACHS [facility]; Protocol Last Admin: 04/27/24 12:48 Dose: Not Given Documented By: TIFFANIE Non-Admin Reason: No Insulin Coverage Magnesium Hydroxide (Milk Of Magnesia 30 Ml Oral.Susp) 30 ml PO DAILY PRN PRN Reason: Constipation Melatonin (Melatonin 3 Mg Tablet) 6 mg PO BEDTIME PRN PRN Reason: Insomnia Omeprazole (Omeprazole 40 Mg Capsule.Dr) 40 mg PO DAILY@0630 [facility] Last Admin: 04/27/24 05:20 Dose: 40 mg Documented By: LOUANN Ondansetron HCl (Ondansetron Hcl 4 Mg/2 Ml Vial) 4 mg IVPUSH Q8H PRN PRN Reason: Nausea and Vomiting Last Admin: 04/27/24 12:45 Dose: 4 mg Documented By: TIFFANIE Sertraline HCl (Sertraline Hcl 25 Mg Tablet) 25 mg PO DAILY [facility] Last Admin: 04/27/24 08:24 Dose: 25 mg Documented By: TIFFANIE Sodium Chloride (0.9 % Sodium Chloride Flush 3 Ml Syringe) 3 ml IVFLUSH QSHIFT [facility] Last Admin: 04/27/24 08:25 Dose: 3 ml Documented By: TIFFANIE Torsemide (Torsemide 20 Mg Tablet) 20 mg PO BEDTIME [facility]; Protocol Last Admin: 04/26/24 21:00 Dose: 20 mg Documented By: LOUANN Torsemide (Torsemide 20 Mg Tablet) 40 mg PO DAILY [facility]; Protocol Last Admin: 04/27/24 08:25 Dose: 40 mg Documented By: TIFFANIE Tramadol HCl (Tramadol Hcl 50 Mg Tablet) 25 mg PO Q6H PRN PRN Reason: Pain, Moderate(Pain Scale 4-6) Last Admin: 04/27/24 05:19 Dose: 25 mg Documented By: LOUANN Labs 04/26/24 05:50 04/27/24 06:08 Labs: Laboratory Results - last 24 hr 04/26/24 04/26/24 04/27/24 16:04 20:48 06:08 Anion Gap 10 L Estim Creat Clear Calc 45.6 Estimated GFR 41 POC Glucose 136 H 124 H Random Glucose 124 H Calcium 8.8 Magnesium 1.7 04/27/24 04/27/24 04/27/24 07:38 11:29 12:44 Anion Gap Estim Creat Clear Calc Estimated GFR POC Glucose 106 180 H 150 H Random Glucose Calcium Magnesium 04/27/24 13:40 Anion Gap Estim Creat Clear Calc Estimated GFR POC Glucose 138 H Random Glucose Calcium Magnesium Assessment and Plan (1) Symptomatic bradycardia: Status: Acute (2) Ventricular tachycardia: Status: Acute (3) Atrial fibrillation: Status: Acute (4) COVID-19: Status: Acute Plan This is a 83-year-old male with pertinent history of paroxysmal atrial fibrillation not on anticoagulation, gastroesophageal reflux disease, mixed hyperlipidemia, non-insulin dependent diabetes mellitus, peripheral neuropathy, hypertension, history of spinal stenosis, GHISLAINE not on CPAP who presents to the emergency department for evaluation after a fall. AFib with RVR HR uncontrolled continued on baseline coreg and home dose of cardizem was resumed for better control of HR. patient has now developed symptomatic bradycardia. d/w cardiology and ICU. will be transferred to ICU for close monitoring. hold coreg, hold cardizem continue AC with Eliquis NSVT Follow electrolytes Echocardiogram wiht EF 45% hold coreg as above Cardiology following, possible cardiac catheterization, initially planned for Tuesday, but given above, timeline may be moved up JANAY creatinine trending up to 1.63 will hold torsemide give gentle IVF follow renal function UTI (group B strep) continue ceftriaxone, d/c with po ceftin Generalized weakness in the setting of COVID-19 cxr negative weaned to room air DuoNebs as needed Hypertension now with hypotension - hold coreg and cardizem Xrs-ajukmvk-spdbzqpal diabetes mellitus Hold glimepiride, metformin SSI, POCs HFrEF pt denies h/o CHF, states he hasn't seen [employer] in years and takes water pill for leg swelling hold toresemide of JANAY echo done 04/26, ef 45% normocytic anemia No baseline in system Above transfusion threshold Mood Continue sertraline HLD Continue statin gerd Continue omeprazole GHISLAINE ?no cpap Eliquis Full code dispo - PT eval rec STR Requires ongoing hospitalization to stabilize rate control, further cardiac workup due to NSVT Quality Stroke Does the patient have a stroke diagnosis?: No VTE Prior VTE?: No VTE Risk Level:: Medical - moderate - high VTE Device Contraindication: Treatment Not Indicated VTE Drug Contraindication: N/A - Med Ordered
[2024-04-27] MEDS: Lactated Ringers 250 ML 999 ML IV (14:00)
[2024-04-27] MEDS: Calcium Gluconate/NaCl,Iso-Osm 1 GM/50 ML PLAST..BAG IV (14:40)
[2024-04-27] MEDS: 0.9 % Sodium Chloride 1,000 ML 999 ML IV (14:45)
[2024-04-27] MEDS: DOPamine HCL/D5W 400 MG/250 ML PLAST..BAG 20.76 MG IVCONT (14:50)
--- NOTE | 2024-04-27 16:10 | W.PM.CCCN ---
History of Present Illness Data of Consult Service Date: 04/27/24 Primary Care Provider: DO PRATIK Wong Reason for consult: Hypotension and bradycardia 83-year-old male with past medical history of paroxysmal atrial fibrillation not on anticoagulation, gastroesophageal reflux disease, mixed hyperlipidemia, non-insulin dependent diabetes mellitus, peripheral neuropathy, hypertension, history of spinal stenosis, GHISLAINE not on CPAP was admitted to the hospital 3 days ago with dizziness and altered sensorium. CTA head and spine was not impressive, was admitted to the floor for the management of AFib with RVR. He has also tested positive for COVID this admission. This morning his home dose of Cardizem and carvedilol was restarted and then patient became bradycardic to the 30s and symptomatic hypotension with systolic in 70s so he is transferred to medical ICU. TTE done 2 days ago showed EF of 40%. Upon admission to medical ICU patient was still bradycardic in 30s so was started on dopamine drip. around 15:00 patient again went into bradycardia to low 10s, became unresponsive, systolic blood pressure dropped to 40 systolic code blue was activated but no compressions were done. Patient was started on a Levophed drip, plans for intubation was readied but patient became more responsive so aborted. An arterial line is being placed for close blood pressure monitoring, Levophed drip stopped and currently patient is only on dopamine drip. Bedside echo showed reduced LV function, septum deviated towards RV, IVC small and collapsing. Patient is treated with 1 L of normal saline bolus Review of Systems Constitutional: Constitutional: Reports anorexia and Denies chills Eyes: Eyes: Denies blind spots and Denies blurry vision ENT: Reports Normal hearing present and Denies bleeding gums Cardiovascular: Cardiovascular: Denies Abdominal Distension, Denies painful fingertips and Denies chest pain Respiratory: Respiratory: Denies change in phlegm color and Denies chest congestion Gastrointestinal: Gastrointestinal: Denies belching and Denies melena Genitourinary: Genitourinary: Denies hematospermia and Denies change in libido Musculoskeletal: Musculoskeletal: Denies abnormal gait and Reports back pain Neurologic: Reports Normal hearing present, Denies abnormal gait, Denies behavioral changes and Reports paresthesias (Right leg) Psychiatric: Psychiatric: Reports anxiety, Denies behavioral changes, Denies change in appetite and Denies change in libido Endocrine: Endocrine: Denies change in libido [facility] Past Medical History Medical History (Updated 04/27/24 @ 14:04 by BRIDGETT Ramos) Hypertension Hyperlipidemia Obstructive sleep apnea Spinal stenosis Anemia Chronic GERD Chronic kidney disease, stage 3 CHF (congestive heart failure) 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 Social History Social History Household Members: Spouse Housing: House Do you presently have visiting nurse or other home services: No Patient Tobacco Use Status: Never used Tobacco Smoked in Last 30 Days: Yes Use of substances other than those prescribed or required for medical reasons: No Currently Displaying Signs/Symptoms of Drug Intoxication Withdrawal: No Have you been hit, kicked, punched, or otherwise hurt by someone within the past year? If so, by whom?: No Do you feel safe in your current relationship?: Yes Is there a partner from a previous relationship who is making you feel unsafe now?: No Are you made to feel afraid or neglected: No Advance Directives: Yes Advance Directives on File: Yes Advance Directives Date on File: 04/24/24 Do you have a plan to hurt others: No Plan Recently lost weight without trying: No Nutrition Risks: No Nutritional Risk service: No Meds Allergies Allergy/AdvReac Type Severity Reaction Status Date / Time Penicillins Allergy Hives Verified 04/23/24 19:14 Active Medications: Current Medications Acetaminophen (Acetaminophen 325 Mg Tablet) 650 mg PO Q6H PRN PRN Reason: Pain, Mild (Pain Scale 1-3), fever or headache Last Admin: 04/25/24 09:15 Dose: 650 mg Apixaban (Apixaban 5 Mg Tablet) 5 mg PO BID PAUL Last Admin: 04/27/24 08:25 Dose: 5 mg Atorvastatin Calcium (Atorvastatin Calcium 20 Mg Tablet) 20 mg PO BEDTIME PAUL Last Admin: 04/26/24 20:48 Dose: 20 mg Benzonatate (Benzonatate 100 Mg Capsule) 200 mg PO TID PRN PRN Reason: Cough Last Admin: 04/27/24 08:25 Dose: 200 mg Calcium Carbonate (Calcium Carbonate 750 Mg Tab.Chew) 750 mg PO Q4H PRN PRN Reason: Heartburn Gabapentin (Gabapentin 300 Mg Capsule) 300 mg PO BEDTIME [facility] Last Admin: 04/26/24 20:49 Dose: 300 mg Glucose (Glucose Gel 15 Gm Gel..Gram.) 15 gm PO Q15M PRN; Protocol PRN Reason: per Hypoglycemia Standing Ord. Guaifenesin/Dextromethorphan (Guaifenesin Dm 600/30 1 Tab Tab.Er.12h) 1 tab PO BID PRN PRN Reason: Cough Last Admin: 04/27/24 08:25 Dose: 1 tab Ceftriaxone Sodium 1 gm/ (Sodium Chloride) 50 mls @ 100 mls/hr IV Q24H [facility] Last Infusion: 04/27/24 09:22 Dose: Infused Dextrose (D10) 250 mls @ 750 mls/hr IV Q15M PRN; Protocol PRN Reason: per Hypoglycemia Standing Ord. Insulin Human Lispro (Insulin Lispro 100 Unit/Ml 3 Ml Vial) 0 unit SUBCUT QIDACHS [facility]; Protocol Last Admin: 04/27/24 12:48 Dose: Not Given Magnesium Hydroxide (Milk Of Magnesia 30 Ml Oral.Susp) 30 ml PO DAILY PRN PRN Reason: Constipation Melatonin (Melatonin 3 Mg Tablet) 6 mg PO BEDTIME PRN PRN Reason: Insomnia Omeprazole (Omeprazole 40 Mg Capsule.Dr) 40 mg PO DAILY@0630 [facility] Last Admin: 04/27/24 05:20 Dose: 40 mg Ondansetron HCl (Ondansetron Hcl 4 Mg/2 Ml Vial) 4 mg IVPUSH Q6H PRN PRN Reason: Nausea and Vomiting Sertraline HCl (Sertraline Hcl 25 Mg Tablet) 25 mg PO DAILY [facility] Last Admin: 04/27/24 08:24 Dose: 25 mg Sodium Chloride (0.9 % Sodium Chloride Flush 3 Ml Syringe) [facility] Last Admin: 04/27/24 08:25 Dose: 3 ml Home Medications ?Medication ?Instructions ?Recorded ?Confirmed ?Last Taken ?Type apixaban 5 mg tablet (Eliquis) 5 mg PO BID 04/24/24 04/24/24 Unknown History carvedilol 25 mg tablet 25 mg PO BID 04/24/24 04/24/24 Unknown History diltiazem HCl 240 mg capsule,24 240 mg PO DAILY 04/24/24 04/24/24 Unknown History hr,extended release glimepiride 1 mg tablet 1 mg PO DAILY@62904/24/24 04/24/24 Unknown History metformin 500 mg tablet,extended 1,000 mg PO BID 04/24/24 04/24/24 Unknown History release 24 hr omeprazole 40 mg capsule,delayed 40 mg PO DAILY@62904/24/24 04/24/24 Unknown History release sertraline 25 mg tablet 25 mg PO DAILY 04/24/24 04/24/24 Unknown History simvastatin 40 mg tablet 40 mg PO BEDTIME 04/24/24 04/24/24 Unknown History torsemide 20 mg tablet 20 mg PO BEDTIME 04/24/24 04/24/24 Unknown History torsemide 20 mg tablet 40 mg PO DAILY 04/24/24 04/24/24 Unknown History Physical Exam Vital Signs: Vital Signs: Last Vital Signs Temp 98.4 F 04/27/24 11:47 Pulse 92 04/27/24 15:56 Resp 19 04/27/24 15:56 BP 109/46 L 04/27/24 15:56 Pulse Ox 98 04/27/24 15:56 O2 Del Method Nasal Cannula 04/27/24 15:56 O2 Flow Rate 2 04/27/24 15:56 BMI result Body Mass Index 33.1 General: acute distress, ill appearing Nutritional Appearance: well nourished and overweight Eyes: appearance normal, both eyes and all related structures; Alignment and Position: alignment normal and position normal Neck: No lymphadenopathy, no thyromegaly Resp: bilateral air entry equal, occasional added sounds present Cardio: Regular rate, regular rhythm; Heart sounds: S1 normal heart sound present and S2 normal heart sound present GI: soft, nontender, no guarding, no hepatosplenomegaly : bladder normal to inspection, bladder normal to palpation, no renal angle tenderness Skin: no rashes or lesions noted and elasticity normal Neuro: oriented to person, oriented to place, oriented to time and moves all extremities Neuro: Cranial nerves: Yes Normal hearing present Results Labs 04/26/24 05:50 04/27/24 06:08 Labs: BMP 04/27/24 06:08 Sodium 141 Potassium 4.4 Chloride 103 Carbon Dioxide 32 H BUN 22 H Creatinine 1.63 H Calcium 8.8 Microbiology Microbiology Results: Microbiology 04/23/24 21:30 Urine clean catch - Clean Catch Midstream Urine Culture - Final Strep agalactiae (Grp B) Assessment and Plan (1) Symptomatic bradycardia: Status: Acute (2) Elevated troponin: Status: Acute (3) Atrial fibrillation: Status: Acute (4) Ventricular tachycardia: Status: Acute (5) Atrial fibrillation with rapid ventricular response: Status: Acute (6) Acute UTI: Status: Acute Plan Cardiogenic shock: Patient is in bradycardia and shock currently on dopamine support. He is also on as needed Levophed support to keep the map above 65 mm Hg Bedside echo showed slightly decreased LV systolic function, septum deviated towards the right, IVC collapsing sufficient is given 1 L of NS bolus. His albumin is 3.3 His troponin trend was stable, echo done 2 days ago showed EF of about 45% with dilated LA and RA Given his COVID positive state need to rule out underlying ischemic heart disease so is being transferred to [facility] for a left heart catheterization Atrial fibrillation: Treated Cardizem and carvedilol this morning, given a g of calcium gluconate the possibly reverse the effect; although the doses very low. Currently in bradycardia On apixaban 5 mg b.i.d. for anticoagulation. Acute kidney injury: Possibly secondary to volume depletion and COVID Creatinine increasing up to 1.8, we will need to repeat a BMP when he reaches there. COVID-19 disease: Chest x-ray clear Not treated with any antivirals so far given no lung symptoms. Urinary tract infection: Urine cultures positive for strep agalactiae Continue ceftriaxone Patient has weakness in his right lower extremity but he states he has these symptoms for over a month. This needs to be further evaluated once his acute condition is resolved. Critical care time spent is about 45 minutes on this critically ill patient with multiple organ failures including cardiogenic shock and acute kidney injury. The time is spent mainly on admission to the critical care unit, managing patient's bradycardia, managing patient's hypotension, adjusting the vasopressor support, review of all the labs and images, bedside echo to guide hemodynamics and fluid therapy, stabilizing the patient during the episode of severe bradycardia and hypotension almost leading to the code. Total time managing care of this patient today: 45 minutes.
--- NOTE | 2024-04-27 16:41 | P.DS_ITS ---
DS: Providers Provider Date of Service: 04/27/24 Date of admission: 04/24/24 09:15 Date of discharge: 04/27/24 Primary care physician: Jesika Gonzalez DO Consults: 04/26/24 10:11 Consult to Cardiology Routine Consulting Provider: [facility] [place] [facility] Reason for consultation: vtach Has provider been notified: No 04/27/24 13:19 Consult to Critical Care Routine Consulting Provider: Frandy Farah Reason for consultation: symptomatic bradycardia Has provider been notified: Yes DS: Transfer Hospital Acceptance Reason for Transfer: For possible need for left heart catheterization Name of Facility: [facility] DS: Diagnosis Discharge Diagnosis (1) Symptomatic bradycardia: Status: Acute (2) Elevated troponin: Status: Acute (3) Atrial fibrillation: Status: Acute (4) Ventricular tachycardia: Status: Acute (5) Atrial fibrillation with rapid ventricular response: Status: Acute (6) Acute UTI: Status: Acute DS: Summary Time Attestation Total time managing care of this patient today: 35 mintues. Discharge Coordination Time (in mins): 35 mins Quality: Safe Use of Opioids Does Pt have an Active Cancer Diagnosis on the Problem List?: No Quality: Stroke Does the patient have a stroke diagnosis?: No Physical Exam Vital Signs: Vital Signs: Last Vital Signs Temp 98.4 F 04/27/24 11:47 Pulse 92 04/27/24 15:56 Resp 19 04/27/24 15:56 BP 109/46 L 04/27/24 15:56 Pulse Ox 98 04/27/24 15:56 O2 Del Method Nasal Cannula 04/27/24 15:56 O2 Flow Rate 2 04/27/24 15:56 BMI result Body Mass Index 33.1 DS: Data Data Completed and Pending Labs on day of discharge: Laboratory Results - last 24 hr 04/26/24 04/27/24 04/27/24 20:48 06:08 07:38 Sodium 141 Potassium 4.4 Chloride 103 Carbon Dioxide 32 H Anion Gap 10 L BUN 22 H Creatinine 1.63 H Estim Creat Clear Calc 45.6 Estimated GFR 41 POC Glucose 124 H 106 Random Glucose 124 H Calcium 8.8 Magnesium 1.7 04/27/24 04/27/24 04/27/24 11:29 12:44 13:40 Sodium Potassium Chloride Carbon Dioxide Anion Gap BUN Creatinine Estim Creat Clear Calc Estimated GFR POC Glucose 180 H 150 H 138 H Random Glucose Calcium Magnesium Discharge Plan Discharge Anticipated Discharge Date/Time: 04/27/24 17:42 Patient Disposition: Xfer Acute Care Hospital Discharge Diagnosis: Cardiogenic shock Referrals: Jesika Gonzalez DO [Primary Care Provider] - 1 Week Discharge Medications: Continued omeprazole 40 mg capsule,delayed release(DR/EC) 40 mg PO DAILY@0630 simvastatin 40 mg tablet 40 mg PO BEDTIME sertraline 25 mg tablet 25 mg PO DAILY torsemide 20 mg tablet 40 mg PO DAILY torsemide 20 mg tablet 20 mg PO BEDTIME Eliquis 5 mg Tablet 5 mg PO BID Held metformin 500 mg tablet extended release 24 hr 1,000 mg PO BID Hold Instructions: Resume on 05/25/24. glimepiride 1 mg Tablet 1 mg PO DAILY@0630 Hold Instructions: Resume on 05/25/24. Discontinued carvedilol 25 mg tablet 25 mg PO BID diltiazem HCl 240 mg Capsule,Extended Release 24 Hr 240 mg PO DAILY Discharge Orders: Discharge Order (Routine); Ordered 04/27/24 Ordered By: Frandy Farah Activity on Discharge: Rest with bed elevated Stand Alone Forms: Patient Portal Discharge page Print Language: Bhutanese Care Plan Goals: Transferred to higher level of care Health Concerns: Transfer to higher level of care Plan of Treatment: Transferred to higher level of care for possible need for left heart catheterization Assessment: 83-year-old male with past medical history of paroxysmal atrial fibrillation not on anticoagulation, gastroesophageal reflux disease, mixed hyperlipidemia, non- insulin dependent diabetes mellitus, peripheral neuropathy, hypertension, history of spinal stenosis, GHISLAINE not on CPAP was admitted to the hospital 3 days ago with dizziness and altered sensorium. CTA head and spine was not impressive, was admitted to the floor for the management of AFib with RVR. He has also tested positive for COVID this admission. This morning his home dose of Cardizem and carvedilol was restarted and then patient became bradycardic to the 30s and symptomatic hypotension with systolic in 70s so he is transferred to medical ICU. TTE done 2 days ago showed EF of 40%. Upon admission to medical ICU patient was still bradycardic in 30s so was started on dopamine drip. around 15:00 patient again went into bradycardia to low 10s, became unresponsive, systolic blood pressure dropped to 40 systolic code blue was activated but no compressions were done. Patient was started on a Levophed drip, plans for intubation was readied but patient became more responsive so aborted. An arterial line is being placed for close blood pressure monitoring, Levophed drip stopped and currently patient is only on dopamine drip. Bedside echo showed reduced LV function, septum deviated towards RV, IVC small and collapsing. Patient is treated with 1 L of normal saline bolus Plan: Cardiogenic shock: Patient is in bradycardia and shock currently on dopamine support. He is also on as needed Levophed support to keep the map above 65 mm Hg Bedside echo showed slightly decreased LV systolic function, septum deviated towards the right, IVC collapsing sufficient is given 1 L of NS bolus. His a lbumin is 3.3 His troponin trend was stable, echo done 2 days ago showed EF of about 45% with dilated LA and RA Given his COVID positive state need to rule out underlying ischemic heart disease so is being transferred to [facility] for a left heart catheterization Atrial fibrillation: Treated Cardizem and carvedilol this morning, given a g of calcium gluconate the possibly reverse the effect; although the doses very low. Currently in bradycardia On apixaban 5 mg b.i.d. for anticoagulation. Acute kidney injury: Possibly secondary to volume depletion and COVID Creatinine increasing up to 1.8, we will need to repeat a BMP when he reaches there. COVID-19 disease: Chest x-ray clear Not treated with any antivirals so far given no lung symptoms. Urinary tract infection: Urine cultures positive for strep agalactiae Continue ceftriaxone Patient has weakness in his right lower extremity but he states he has these symptoms for over a month. This needs to be further evaluated once his acute condition is resolved.
[2024-04-27 16:57] LABS: Glucose, Whole Blood 206 mg/dL (60-115)
--- NOTE | 2024-04-27 17:41 | PC.NURSE ---
Assumed care at approx 1410- pt transported to ICU by Med-harness rigger and charge master specialist. Pt. HR sustaining 30s-40s, MAPs >65, Pt. AOx4, pleasant, c/o mild dizziness and nausea. 1 g calcium gluonate IV and 1L NS IV administered per OCT. approx 1445 MAPs bagin sustaining <65- dopamine gtt started per MD and titrated per OCT. Approx 1500 pt c/o severe nausea, statinng I am going to be sick . Pt. begins dry heaving/coughing, does not produce emesis. 02 sats susatining 50s-60, pt cyanotic, apneic, and unresponsive- pulse present. Olivia burnette called, supplemental oxygen applied, and pt. orally suctioned. Back board and pacer pads in place. MD, RT, Olivia burnette team, and this RN at bedside. Approx 1 minute after unresponsiveness, pt. becomes arousabe to painful stimuli, then verbal stimuli. Pt. then arousable spontaneously, coughing and effectively protecting airway- O2 sats >95%, MAPs >65, HR 80s-90s. R femoral ALICIA placed by . Fransico placed by this RN with MD order. Warm Handover given to [facility] [place] by this RN. Pt. Transported to [facility] at approx 1730 by EMS staff.
== END 2024-04-27 17:30 | disposition short-term general hospital (02) | DRG 689 ==
LOC: HO.ED 04-24 04:44 → HO.EDOVER 04-24 05:17 → HO.IMC 04-25 07:22 → HO.ICU 04-27 14:05
PROVIDERS: Hospitalist; Physician Assistant Medical; Admitting Provider Student in an Organized Health Care Education/Training Program; Emergency Provider Emergency Medicine; PCP Internal Medicine; Visit Provider Internal Medicine Critical Care Medicine
DX: N39.0 Urinary tract infection, site not specified (principal); R57.0 Cardiogenic shock; U07.1 COVID-19; I47.20 Ventricular tachycardia, unspecified; N17.9 Acute kidney failure, unspecified; D64.9 Anemia, unspecified; R00.1 Bradycardia, unspecified; G47.33 Obstructive sleep apnea (adult) (pediatric); K21.9 Gastro-esophageal reflux disease without esophagitis; B95.1 Streptococcus, group B, as the cause of diseases classified elsewhere; E78.2 Mixed hyperlipidemia; E11.42 Type 2 diabetes mellitus with diabetic polyneuropathy; Z79.01 Long term (current) use of anticoagulants; Z79.84 Long term (current) use of oral hypoglycemic drugs; Z79.899 Other long term (current) drug therapy
CPT/HCPCS: 36415; 70450; 71045; 72125; 73502; 80048; 80053; 80076; 80307; 81001; 82947; 83735; 83880; 84443; 84484; 85025; 85610; 87086; 87147; 87635; 92950; 93005; 93306; 97162; 97530; 99222; 99285; C1758; J0613; J0696; J1265; J1920; J2405; J3475; J7120; Q9957

== ENCOUNTER → 2024-04-24 05:12 | Outpatient (BNV) | payer MEDICARE, SELFPAY | PROVIDERS: Admitting Provider Student in an Organized Health Care Education/Training Program; Emergency Provider Emergency Medicine; PCP Internal Medicine; Visit Provider Student in an Organized Health Care Education/Training Program | DX: R00.1 Bradycardia, unspecified (principal); I47.20 Ventricular tachycardia, unspecified; I48.91 Unspecified atrial fibrillation; U07.1 COVID-19 | CPT/HCPCS: 99223; 99232; 99233; 99499 ==

== ENCOUNTER 2024-04-24 09:15 | Outpatient (BNV) | payer MEDICARE, SELFPAY | END 2024-04-26 07:00 | PROVIDERS: Admitting Provider Student in an Organized Health Care Education/Training Program; Emergency Provider Emergency Medicine; PCP Internal Medicine; Visit Provider Internal Medicine | DX: I36.1 Nonrheumatic tricuspid (valve) insufficiency (principal); I34.81 Nonrheumatic mitral (valve) annulus calcification; I42.2 Other hypertrophic cardiomyopathy | CPT/HCPCS: 93306 ==

== ENCOUNTER → 2024-04-24 09:15 | Outpatient (BNV) | payer MEDICARE, SELFPAY | PROVIDERS: Admitting Provider Student in an Organized Health Care Education/Training Program; Emergency Provider Emergency Medicine; PCP Internal Medicine; Visit Provider Internal Medicine | DX: I47.20 Ventricular tachycardia, unspecified (principal); I48.91 Unspecified atrial fibrillation; U07.1 COVID-19; R79.89 Other specified abnormal findings of blood chemistry | CPT/HCPCS: 99223; 99233 ==

== ENCOUNTER → 2024-04-24 09:15 | Outpatient (BNV) | payer MEDICARE, SELFPAY | PROVIDERS: Admitting Provider Student in an Organized Health Care Education/Training Program; Emergency Provider Emergency Medicine; PCP Internal Medicine; Visit Provider Internal Medicine Critical Care Medicine | DX: I48.91 Unspecified atrial fibrillation (principal); I47.20 Ventricular tachycardia, unspecified; R00.1 Bradycardia, unspecified; R79.89 Other specified abnormal findings of blood chemistry; N39.0 Urinary tract infection, site not specified | CPT/HCPCS: 99239; 99291 ==